=== PATIENT | male | born 1945 | race Caucasian/White ===

== ENCOUNTER 2019-08-06 08:38 | Outpatient (CLI) | payer MEDICARE, SELFPAY ==
--- NOTE | ~2019-08-06 | CT_ITS ---
EXAMINATION: CT lumbar spine wo con DATE: 08/06/2019 09:24 INDICATION: Chronic low back pain syndrome. TECHNIQUE: Computed tomography (CT) of the lumbar spine was performed without intravenous contrast. A utomated exposure control and iterative reconstruction technique were employed. The dose-length produ ct was 308.65 mGy-cm. COMPARISON: None FINDINGS: There is 10 degrees levoscoliosis of lumbar spine. There are chronic bilateral L5 pars defe cts. There is 3 mm anterolisthesis of L5 on S1. Vertebral body heights are normal. There is a benign bone island in L4 vertebral body. There is mildly decreased disc height at L3-L4 and severely decreas ed disc height at L4-L5 and L5-S1. The following disc levels are specifically discussed: L1-L2: The disc is bulging. There is mild bilateral facet joint osteoarthritis. There is mild bilater al neural foraminal stenosis. There is mild central canal stenosis. L2-L3: The disc is bulging. There is mild bilateral facet joint osteoarthritis. There is mild bilater al neural foraminal stenosis. There is mild central canal stenosis. L3-L4: The disc is bulging. There is moderate right and severe left facet joint osteoarthritis. There is moderate right and mild left neural foraminal stenosis. There is mild central canal stenosis. L4-L5: The disc is bulging. There is severe bilateral facet joint osteoarthritis. There is moderate b ilateral neural foraminal stenosis. There is mild central canal stenosis. L5-S1: The disc is bulging. There is mild right and moderate left facet joint osteoarthritis. There i s mild bilateral neural foraminal stenosis. There is mild central canal stenosis. IMPRESSION: 1. Severe lumbar spondylosis. 2. Lumbar levoscoliosis. 3. Chronic bilateral L5 pars defects with grade 1 anterolisthesis of L5 on S1. Reviewed, dictated and finalized at location A.
== END 2019-08-06 08:39 | disposition home or self-care (01) ==
LOC: ANHIMG 08:47
PROVIDERS: PCP Family Medicine; Visit Provider Family Medicine
DX: G89.4 Chronic pain syndrome (principal); M47.896 Other spondylosis, lumbar region
CPT/HCPCS: 72131

== ENCOUNTER 2022-11-20 07:24 | Outpatient (CLI) | payer MEDICARE, SELFPAY ==
--- NOTE | ~2022-11-20 | CT_ITS ---
EXAMINATION: CT soft tissue neck chest wo DATE: 11/20/2022 08:00 INDICATION: Head and neck cancer. TECHNIQUE: Computed tomography (CT) of the neck and chest was performed without intravenous contrast. Automated exposure control and iterative reconstruction technique were employed. The dose-length pro duct was 444.58 mGy-cm. COMPARISON: None FINDINGS: CT NECK: There is a subcutaneous radiopaque foreign body in right cheek. Motion artifact is noted. Th ere are surgical clips in right neck, likely from lymph node resection. The right submandibular gland is absent. There are no pathologically enlarged lymph nodes. The pharynx and larynx are unremarkable . There is severe cervical spondylosis. There is mucosal thickening in right sphenoid sinus with thic kening and sclerosis of the sinus chi, consistent with chronic sinusitis. There is mild mucosal thi ckening in some of the other sinuses. The mastoid air cells are normal. CT CHEST: There is mild emphysema. There is minimal atelectasis in the lungs. Calcified pulmonary nod ules and calcified left hilar lymph nodes are consistent with old granulomatous disease. No pleural e ffusion. The heart size is normal. There are coronary artery calcifications. No pericardial effusion. There is bilateral gynecomastia. There is a small sliding hiatal hernia. There is a 2.2 cm cyst in t he liver. There is a 4.6 cm rim calcified cystic mass in the spleen, likely an old hematoma or old in fection. There are surgical clips around the inferior vena cava. There is mild thoracic spondylosis. IMPRESSION: 1. No evidence of metastatic disease. 2. Mild emphysema. 3. Chronic sinusitis. 4. Small sliding hiatal hernia. Reviewed, dictated and finalized at location B.
== END 2022-11-20 07:25 | disposition home or self-care (01) ==
PROVIDERS: PCP Family Medicine
DX: C02.9 Malignant neoplasm of tongue, unspecified (principal); C76.0 Malignant neoplasm of head, face and neck; K44.9 Diaphragmatic hernia without obstruction or gangrene; J43.9 Emphysema, unspecified; J32.9 Chronic sinusitis, unspecified
CPT/HCPCS: 70490; 71250

== ENCOUNTER 2024-09-12 09:05 | Emergency (ER) | payer MEDICARE, SELFPAY ==
[2024-09-12] VITALS (7 sets, daily range): BP systolic 106–127; BP diastolic 61–70; PULSE 66–81; RESP 15–20; TEMP 36.5–36.6; O2SAT 96–100
--- NOTE | ~2024-09-12 | CT_ITS ---
CLINICAL INDICATION: Altered mental status with right lower quadrant pain and back pain COMPARISON: None. Reference is made to multiple abdominal ultrasounds dating back to 04/03/2012. Refe rence is also made to a CT examination of the chest performed 11/20/2022 TECHNIQUE: Multiple contiguous axial images of the chest, abdomen and pelvis were performed without t he administration of intravenous contrast The dose-length product (DLP) was 415.29 mGy-cm. Automated exposure control and iterative reconstruction technique were employed. FINDINGS/OBSERVATIONS: LUNG: Trace bibasilar atelectasis. No evidence of contusion, pneumothorax or hemothorax. MEDIASTINUM: Limited evaluation without intravenous contrast. HEART: The heart is of normal size, without pericardial effusion. SOFT TISSUES OF THE CHEST: Unremarkable. Liver: Bulky calcifications are identified within the posterior medial margin of segment 6, unchanged dating back to 2011. Irregular focus of decreased attenuation within segment 8 of the liver measuring 2.1 x 2.0 x 1.8 cm, unchanged from 11/20/2022. The remainder of the liver demonstrates homogeneous attenuation, and is not enlarged. No perihepatic fluid to suggest acute traumatic injury. Gallbladder and biliary system: The gallbladder is surgically absent. Pancreas: Limited evaluation of the pancreas secondary to the lack of intravenous contrast. No peripancreatic fluid is identified to suggest acute traumatic injury. Spleen: A calcified splenic cyst is redemonstrated. The spleen remains enlarged measuring 15 cm in longitudin al dimension. No perisplenic fluid is identified to suggest acute traumatic injury. Kidneys: The bilateral [place] kidneys are atrophic, without hydronephrosis or renal calculi. Transplant kidney within the left lower quadrant is without hydronephrosis or renal calculi. No perirenal fluid is identified to suggest acute traumatic injury. Adrenal glands: Unremarkable. Gastrointestinal tract: Fecal stasis within the colon. Colonic diverticulosis without diverticulitis. No free fluid within the abdomen. Trace free fluid within the deep pelvis, simple in attenuation. Vasculature: Unremarkable. Lymph nodes: Limited evaluation without intravenous contrast. Pelvic structures: The bladder is decompressed, and otherwise unremarkable. The prostate gland is not enlarged Body wall and musculoskeletal: No umbilical hernia. Degenerative disease is identified within the lower lumbar spine with osteophyte formation, disc spac e narrowing, endplate changes and vacuum phenomena. This is most prominent at the level of L4/L5 and L5/S1. Moderate facet arthropathy is also noted as i s a bone island within the vertebral body of L4. No acute fracture within the thoracic or lumbar spine. No acute rib fractures. No acute sternal fracture. IMPRESSION: No hollow or solid visceral organ injury. No acute fractures. Innumerable nonacute findings, as detailed above. Reviewed, dictated and finalized at location A.
--- NOTE | ~2024-09-12 | CT_ITS ---
History: Altered mental status PROCEDURE: CT head without contrast. COMPARISON: None TECHNIQUE: Axial imaging of the head performed from the skull base to the vertex without IV contrast. Sagittal a nd coronal reformations obtained. DLP: 605 mGy-cm FINDINGS: The ventricles are enlarged. The dilatation of the ventricles is proportional to the degree of sulcal prominence, not uncommon in the senescent brain. Decreased attenuation is identified within the periventricular white matter, likely secondary to micr ovascular ischemic disease, in a patient of this age. There is no mass, mass effect or midline shift. There is no abnormal extra-axial fluid collection or intracranial hemorrhage. Opacification of the right sphenoid sinus is identified. Remaining paranasal sinuses are unremarkable. The mastoid air cells are well aerated. No acute displaced fractures within the overlying cranium. Impression: No acute intracranial hemorrhage or suspicious mass effect. Inflammatory sinus disease, as detailed above. Reviewed, dictated and finalized at location A. Impression: No acute intracranial hemorrhage or suspicious mass effect. Inflammatory sinus disease, as detailed above.
--- NOTE | 2024-09-12 09:13 | ECG_ITS ---
Test Date: 2024-09-12 09:17:00 Measurements Intervals [place] Rate: 76 P: -3 WA: 163 QRS: 12 QRSD: 89 T: 34 QT: 389 QTc: 438 Interpretive Statements SINUS RHYTHM No previous ECG available for comparison Electronically Signed On 09-12-2024 11:46:15 CDT by Fernando Dixon M.D.
--- OUTSIDE RECORDS SUMMARY | 2024-09-12 09:14 | XMS_ITS ---
Author Organization [facility] al Address [address] [place] [address] Care Team Providers Care Journeyman Electrician Pv Installer Name Role Phone Celia Mayberry MD Primary Care Provider Dale Figueroa RN Unavailable Jarrod Ramirez MD Unavailable [phone] Leena Alfaro RN Unavailable José Manuel Antoine MD Unavailable [phone] Isreal Morgan MD Unavailable [phone] Temo Shepard MD Unavailable Active Problems Patient Care Coordination No te Formatting of this note migh t be different from the original. Lab Name: [facility] Phone: Timeframe orders are good for: 6 Months Last orders sent to lab on: 2024 (Standing Order (Liver): CBC, CMP, GGT, [place], Every 12 Weeks) STANDING ORDERS (Kidney): Q3 - PHOS, GGT, CMP, FK HGBA1C, LP (expires: 10/27/24) Problem Noted Date Diagnosed Date Chronic back pain 09/18/2022 Assessment & Plan (09/18/2022 5:44 PM CDT): He asked about pain pills. I told him I would prefer if he saw someone in pain management. He has done this before and did not feel that another visit was of benefit. He will continue to use his current regimen. Cirrhosis, non-alcoholic 09/18/2022 Assessment & Plan (09/18/2022 5:44 PM CDT): Secondary to chronic hepatitis-C following the transplant; hepatitis-C subsequently eradicated with antiviral therapy. Imaging of the liver to screen for hepatocellular carcinoma has been recommended. He is not interested and accepts the potential risk of the development of hepatocellular carcinoma. 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 Kidney replaced by transplant 07/01/2018 Chronic fatigue 07/01/2018 Increased infection risk sta tus post immunosuppressive therapy 10/09/2017 Assessment & Plan (10/09/2017 11:03 AM CDT): Completed 3 month course valcyte for CMV prophylaxis Completed fluconazole course Bactrim on hold for hyperkalemia #3 Hep B immunization: Will wait until next OV Rhinorrhea 10/09/2017 Assessment & Plan (10/09/2017 11:18 AM CDT): Fluticasone nasal spray- 1 spray each nostril QD Encounter for preventive health examination 10/2017 High risk medications (not anticoagulants) long- term use 09/02/2017 Assessment & Plan (10/09/2017 1:20 PM CDT): Tacrolimus increased from 3 mg to 4 mg on 10/02. Tac level was 4.4 on 3 mg and now last tac level 10.3. D/W patient consistently taking tacrolimus 1 hour from consuming food; Will continue 4 mg at this time and reassess repeat trough prior to making another adjustment Continue same dose and continue to monitor levels Continue antimetabolite and prednisone Anemia of chronic disease 09/01/2017 Renal osteodystrophy 05/27/2017 History of liver transplant 02/06/2017 Assessment & Plan (09/18/2022 5:43 PM CDT): He has stable allograft function. I saw no reason to change his current immunosuppression. He is not interested in frequent lab checks but is agreeable to labs every 6 months. I will continue to monitor levels of immunosuppressive medications. He will return in 1 year or when clinically indicated. Telehealth is acceptable. Assessment & Plan (05/10/2020 5:58 PM CULTURE ROOM WORKER): He has stable allograft function with normal liver biochemistries. I am not convinced she the liver is responsible for his multi system complaints. There was some question of cirrhosis on previous studies, secondary to the chronic hepatitis-C. However, definitive cirrhosis is not seen now, possibly due to regression of hepatic fibrosis. I saw no reason to change his current immunosuppression. I suspect there are multiple components to his complaints. He spends much of the day with very little activity. I suggested regular daily walks of 20-30 minutes to slowly increase his strength. I suggested CPAP for his obstructive sleep apnea. He refused. I suspect there is a component of depression, but he is not interested in antidepressants. I offered Remeron with the thought that it might improve his appetite. Again, he refused. He will return in 1-2 years for follow-up. 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 His posttransplant course significant for recurrent hepatitis C for which he has had at least 4 rounds of treatment and he has not been able to clear his hepatitis C. He follows with Dr. Ramirez in Hepatology at [facility]. Currently, not on any treatment at the time of kidney transplantation. End-stage renal disease secondary to biopsy proven diabetes with a history of end-stage liver disease, hepatocellular carcinoma, and hepatitis C secondary to liver transplantation on December 2014 as above. He underwent the high-risk HCV DCD donor, and donor positive for group B strep. Kidney transplantation in 08/18/2017. It was 1, 2, 1 mismatch, flow negative for T cell and B cell, PRA class I 0%, class II 0%, no DSA. CMV positive into positive. He received Simulect induction 20 mg in the OR and postop day 4. He was discharged with triple immunosuppression, Envarsus, Myfortic, and prednisone. His creatinine on discharge was 2.1 on 08/22/2017. Assessment & Plan (10/09/2017 1:20 PM CDT): Creatinine stable, last was 1.43; Urine negative today Continue to monitor creatinine and renal function; Avoid nephrotoxins Chronic rhinitis 12/05/2014 Alcohol dependence in remission 11/24/2013 Assessment & Plan (09/18/2022 5:45 PM CDT): No known change in alcohol abstinence. Chronic obstructive pulmonary disease 11/22/2012 Dysthymia 11/22/2012 Assessment & Plan (09/18/2022 5:45 PM CDT): Multiple factors; continue to monitor. Hypersplenism 11/22/2012 Hypertension 11/22/2012 Assessment & Plan (10/09/2017 1:21 PM CDT): Hypertension is unchanged. Continue current treatment regimen. Dietary sodium restriction. Regular aerobic exercise. Blood pressure will be reassessed at the next regular appointment. Type 2 diabetes mellitus 11/22/2012 Assessment & Plan (10/09/2017 1:22 PM CDT): Diabetes is unchanged. Continue current treatment regimen. Reminded to bring in blood sugar diary at next visit. Dietary recommendations for ADA diet. Regular aerobic exercise. Discussed ways to avoid symptomatic hypoglycemia. Diabetes will be reassessed in 3 months. Thrombocytopenia 11/17/2011 Hyperlipidemia Current Treatment and Therapy Plans No current plan information found. Other Current Plans DARBEPOETIN (ARANESP) INJECTION-?CHRONIC RENAL FAILURE* Plan Start Date: 09/01/2017 Plan Provider:Transcribed Order, Provider Linked Problems Anemia of chronic disease Treatment Medications No medications scheduled. Past Treatment and Therapy Plans No past plan information found. Lifetime Dose Tracking * Chemical Lifetime Dose Automatic Entry Manual Entr y DLP 763 mGycm 763 mGycm 0 mGycm Resolved Problems Problem Noted Date Diagnosed Date Resolved Date Stage 5 chronic kidney disease (CMS/HCC) 10/21/2016 09/18/2022 Stage 4 chronic kidney disease (CMS/HCC) 03/19/2016 09/18/2022 Chronic viral hepatitis C 06/03/2011
--- OUTSIDE RECORDS SUMMARY | 2024-09-12 09:14 | XMS_ITS ---
Author Organization [facility] ([facility]) Address [address] [place] [id number] Care Team Providers Care Analysis Engineer Name Role Phone Unavailable Unavailable Unavailable Allergies, Adverse Reactions, Alerts This patient has no known allergies or adverse reactions. Problems This patient has no known problems.
--- OUTSIDE RECORDS SUMMARY | 2024-09-12 09:14 | XMS_ITS ---
Author Organization [facility] al Address [address] [place] [address] Care Team Providers Care Cylinder Press Operator Name Role Phone Celia Mayberry MD Primary Care Provider Dale Figueroa RN Unavailable Jarrod Ramirez MD Unavailable [phone] Leena Alfaro RN Unavailable [phone] José Manuel Antoine MD Unavailable [phone] Isreal Morgan MD Unavailable [phone] Temo Shepard MD Unavailable [phone] Transplant Episode Kidney Recipient [facility] ([place], [place]) [facility] Organ Received: Right Kidney Transplanted on 08/18/2017 Marked as Active Follow-up on 08/18/2017 Kidney CoordinatorDale Figueroa RN Fax: N/A Email: N/A [place] Organ Diagnosis Organ Primary Contributory Kidney Diabetes Mellitus - Type II Retransplant Diagnosis Organ Primary Contributory Kidney Diabetes Mellitus - Type II Donor Information Organ ABO Source Meets Risk Criteria HLA Match Mismatches Cross Match Right Kidney Transplanted A1 DCD Yes A: B: DR: Right Kidney Donor Serology Results Anti-CMV CMV IgG: Positive EBV IgG EBV VCA IgG: Positive Anti-HBcAb HBC Total: Negative HBsAg HBsAg: Negative HBV DNA No results on file Anti-HCV HCV: Positive Anti-HIV I/II No results on file Anti-HTLV I/II HTLV: Not Done RPR/VDRL RPR: Negative EBV IgM EBV VCA IgM: Negative HBsAb No results on file EBNA No results on file SARS CoV-2 No results on file Care Team Name Role Phone Fax Email Dale Figueroa, RN Kidney Coordinator [phone] N/A N/A Yina Huitron Primary Senior Software Qa Engineer N/A N/A N/A Dale Figueroa, warehouse pullerLab Asst [phone] N/A N/A Neelam Blair, ROSHNI Secondary Coordinator Secondary Kidney Coordinator [phone] N/A N/A Delma Chaudhry Entry Level Marketing Assistant [phone] N/A N/A Marci Maldonado Entry Level Marketing Assistant [phone] N/A N/A Events Post-Transplant Pre-Transplant Admitted: 08/18/2017 Referred: 10/10/2016 Transplanted: 08/18/2017 Evaluation began: 7 Discharged: 08/22/2017 Center waitlisted: 8 Appointments (08/13/2024 - 10/13/2024) When With Visit Type Description 09/03/2024 Transplant - [facility] Telemedicine Appoin tment Kidney replaced by transplant (Primary Dx); Encounter for aftercare following kidney transplant; Encounter for long-term (current) use of high-risk medication; Hypertension, unspecified type Dialysis History Dialysis History Start End Type Comments Center 09/16/2017 [facility] Dialysis Center Information Center Phone Fax Address [facility] [phone] [address] [facility] [id number]
--- OUTSIDE RECORDS SUMMARY | 2024-09-12 09:14 | XMS_ITS | Referral Summary ---
Author Organization [facility] Address [address] [place] [address] Care Team Providers Care Java Web Services Developer Name Role Phone Celia Mayberry MD Primary Care Provider Dale Figueroa RN Unavailable Jarrod Ramirez MD Unavailable [phone] Leena Alfaro RN Unavailable José Manuel Antoine MD Unavailable [phone] Isreal Morgan MD Unavailable [phone] Temo Shepard MD Unavailable [phone] Encounters Date Type Department Care Team Description 09/10/2024 8:33 AM CDT - 09/10/2024 11:24 AM CDT Emergency [facility] Emergency Department [address] [place] [address] Shakir Sumner MD Acute bilateral thoracic back pain (Primary Dx) Discharge Disposition: Discharge to home or self care 09/03/2024 9:00 AM CDT Telemedicine [facility] Nephrology [address] [facility] 5th [place] [address] [place] [address] Senait Cloud NP Kidney replaced by transplant (Primary Dx); Encounter for aftercare following kidney transplant; Encounter for long-term (current) use of high-risk medication; Hypertension, unspecified type 08/31/2024 Lab [facility] Transplant Kidney [address] Mailstop [phone] [place] [address] Tamara Ashraf MD 08/27/2024 Lab [facility] Transplant Kidney [address] [facility] [address] Mailstop [phone] [place] [address] Tamara Ashraf MD 08/27/2024 Telephone [facility] Transplant Kidney [address] [facility] [address] Mailstop [id number] [place] [address] Alexia Urias from Last 3 Months Allergies Active Allergy Reactions Criticality Noted Date Comments No Known Allergies Other (See comments) Low Reaction: Medications levothyroxine (SYNTHROID, LEVOTHROID) 88 mcg tabletIndicatio ns:hypothyroidi sm Take 1 tablet (88 mcg total) by mouth quality review trainer before breakfast 8 Active BD ULTRA-FINE SHORT PEN NEEDLE 31 gauge x 5/16 needle 8 Active temazepam (RESTORIL) 30 mg capsuleIndicati ons:Insomnia Take 1 capsule (30 mg total) by mouth nightly as needed 3 8 Active cholecalciferol (VITAMIN D-3) 2,000 unit tabletIndicatio ns:Vitamin D Deficiency Take 1 tablet (2,000 Units total) by mouth nightly 8 Active ONETOUCH ULTRA BLUE TEST STRIP strip USE TO TEST TID 3 8 Active carvediloL (COREG) 3.125 mg tabletIndicatio ns:hypertension Take 1 tablet (3.125 mg total) by mouth nightly 0 Active aspirin 81 mg enteric coated tabletIndicatio ns:prevention of thrombosis Take 1 tablet (81 mg total) by mouth nightly 2 Active oxyCODONE (ROXICODONE) 5 mg immediate release tabletIndicatio ns:Pain Take 1 tablet (5 mg total) by mouth every 4 (four) hours as needed for pain for up to 30 doses 30 tablet 2 Active predniSONE (DELTASONE) 2.5 mg tabletIndicatio ns:Kidney replaced by transplant Take 1 tablet (2.5 mg) by mouth daily 90 tablet 3 5 08/28/19 26 Active tacrolimus 1 mg immediate-relea se capsuleIndicati ons:History of liver transplant (HCC) Take 2 capsules (2 mg total) by mouth every morning AND 1 capsule (1 mg total) nightly. Dx code: z94.0 Specialty pharmacy. 270 capsule 3 5 08/28/19 26 Active cyclobenzaprine (FLEXERIL) 10 mg tablet Take 1 tablet (10 mg total) by mouth 2 (two) times a day as needed for muscle spasms 20 tablet 5 Active lidocaine (LIDODERM) 5 % Apply 1 patch topically daily for 12 hours Remove after 12 hours (need 12 hour patch free period). 10 patch 5 10/11/19 25 Active tacrolimus 1 mg immediate-relea se capsuleIndicati ons:History of liver transplant (HCC) Take 2 capsules (2 mg total) by mouth every morning AND 1 capsule (1 mg total) nightly. Dx code: z94.0 Specialty pharmacy. 270 capsule 3 4 08/28/19 25 Discontinu ed(Reorder ) predniSONE (DELTASONE) 2.5 mg tabletIndicatio ns:Kidney replaced by transplant Take 1 tablet (2.5 mg) by mouth daily 90 tablet 3 4 08/28/19 25 Discontinu ed(Reorder ) Active Problems Patient Care Coordination No te Formatting of this note migh t be different from the original. Lab Name: [facility] Phone: Timeframe orders are good [...] (11/06/2021): Added automatically from request for surgery [id number] Encounter for long-term (cur rent) use of [...] acceptable. 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 Ramirez in Hepatology at [facility]. Currently, not on any treatment at the [...] reassessed in 3 months. Thrombocytopenia 11/17/2011 Hyperlipidemia Resolved Problems Problem Noted Date Diagnosed Date Resolved Date Stage 5 chronic kidney disease ([facility]/HCC) 10/21/2016 09/18/2022 Stage 4 chronic kidney disease ([facility]/HCC) 03/19/2016 09/18/2022 Chronic viral hepatitis C 06/03/2011 Immunizations Immunization Administration Dates Next Due Hep B Vaccine 02/25/2018, 8,03/24/2017,02/19 Influenza, Quad, Adjuvantate d, Intramuscular 12/23/2020 Influenza, Quadrivalent, Hig h Dose, Preservative Free, Intrr 02/01/2020 Influenza, Trivalent, Adjuva nted, Intramuscular 02/10/2019 Influenza, Trivalent, High D ose, Split, Preservative Free, Intramuscular 01/24/2018,01/22/2017,01/08/2017,01/18 Influenza, Trivalent, IM (MDV) 01/14/2013 Pfizer SARS-CoV-2 Monovalent Vaccination (12+ Yrs) PURPLE 05/27/2020,06/23/2019 Pneumococcal Polysaccharide PPV23 02/20/2017 ZOSTER LIVE 11/14/2015 Social History Tobacco Use Types Packs/Day Years Used Date Smoking Tobacco: Every Day Cigarettes Smokeless Tobacco: Never Tobacco Cessation:Ready to Q uit: Not Asked; Counseling Given: Not Answered Comments:plans to quit smoking after sx Alcohol Use Standard Drinks/Week Comments Not Currently 0 (1 standard drink = 0.6 oz pur e alcohol) AUDIT-C Answer Date Recorded Frequency of Alcohol Consumption Not on file 12/11/2021 Q2: How many drinks containi ng alcohol do you have on a typical day when you are drinking? Patient does not drink Frequency of Binge Drinking Not on file 11/20 Personal Safety Answer Date Recorded Have you ever been in or are you currently in a harmful physical or emotional relationship or is someone making you feel afraid or unsafe? 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 Gender Identity Not on file Sexual Orientation Not on file Last Filed Vital Signs Vital Sign Reading Time Taken Comments Blood Pressure 121/76 09/10/2024 8:30 AM CDT Pulse 76 09/10/2024 8:30 AM CDT Temperature 36.8 C (98.3 F) 09/10/2024 8:30 AM CDT Respiratory Rate 17 09/10/2024 8:30 AM CDT Oxygen Saturation 98% 09/10/2024 8:30 AM CDT Inhaled Oxygen Concentration - - Weight 54.4 kg (120 lb) 09/10/2024 8:30 AM CDT Height 172.7 cm (5' 8 ) 09/10/2024 8:30 AM CDT Body Mass Index 18.25 09/10/2024 8:30 AM CDT Plan of Treatment Scheduled Procedures Name Priority Associated Diagnoses Date/Ti me COLONOSCOPY Encounter for health-related screening Procedures Procedure Name Priority Date/Time Associated Diagnosis Comments POCT GLUCOSE DEVICE Routine 09/10/2024 8 :31 AM CDT TACROLIMUS LEVEL, TROUGH Routine 08/27/2024 CBC WITH AUTO DIFFERENTIAL Routine 08/27/2024 LIPID PANEL Routine 08/27/2024 COMPREHENSIVE METABOLIC PANEL Routine 08/27/2024 GAMMA GT Routine 08/27/2024 HEMOGLOBIN A1C Routine 08/27/2024 PHOSPHORUS Routine 08/27/2024 TSH Routine 10/19/2020 HEPATITIS C RNA, QUANTITATIVE, PCR Routine 02/19/2019 CT ABDOMEN PELVIS WO CONTRAST Routine 01/27/2017 6:24 PM CDT COLONOSCOPY REPORT 11/16/2014 from Last 3 Months or Most Recently Relevant to Health Maintenance Results * (ABNORMAL) POCT glucose (09/10/2024 8:31 AM CDT) Glucose, POC 301(H) 70 - 199 mg/dL Blood 09/10/2024 8:31 AM CDT 09/10/2024 8:31 AM CDT Notinfile Unknown LAB POCT ORDERABLES - DEVICE F inal Result Performing Organization Address [facility] Co de Phone Number REYNALDO MERGED WITH [facility] Department [place] [address] * Tacrolimus level trough (08/27/2024) SCRIBED Tacrolimus, trough 11 5 - 20 TXP NO LAB FOUND Blood 08/27/2024 Result [facility] Historical Provider LAB BLOOD ORDERABLES Edit ed Result - Final Performing Organization Address [facility] de Phone Number TXP NO LAB FOUND * (ABNORMAL) CBC with auto differential (08/27/2024) SCRIBED WBC 5.8 4.2 - 10.8 k/cumm TXP NO LAB FOUND SCRIBED Hemoglobin 14.2 13.2 - 17 g/dL TXP NO LAB FOUND SCRIBED Hematocrit 43.9 39.3 - 50 % TXP NO LAB FOUND SCRIBED Platelets 116(A) 150 - 400 k/cumm TXP NO LAB FOUND Blood 08/27/2024 Historical Provider LAB BLOOD ORDERABLES Edit ed Result - Final Performing Organization Address [facility] Co de Phone Number TXP NO LAB FOUND * Phosphorus (08/27/2024) SCRIBED Phosphorus 3.2 2.5 - 4.5 mg/dl TXP NO LAB FOUND Blood 08/27/2024 Result [facility] Historical Provider LAB BLOOD ORDERABLES Terra l Result Performing Organization Address [facility] Co de Phone Number TXP NO LAB FOUND * (ABNORMAL) Hemoglobin A1c (08/27/2024) SCRIBED Hemoglobin A1c 6.5(A) 4.0 - 6.0 % TXP NO LAB FOUND Blood 08/27/2024 Result [facility] Provider LAB BLOOD ORDERABLES Terra l Result Performing Organization Address City/[facility]/ZIP Co de Phone Number TXP NO LAB FOUND * Gamma GT (08/27/2024) SCRIBED GGT 16 12 - 58 TXP NO L AB FOUND Blood 08/27/2024 Result [facility] Provider LAB BLOOD ORDERABLES Terra l Result Performing Organization Address [facility] Co de Phone Number TXP NO LAB FOUND * (ABNORMAL) Lipid panel (08/27/2024) SCRIBED Cholesterol, Total 266(A) 140 - 199 mg/dL TXP NO LAB FOUND SCRIBED Triglycerides 286(A) 0 - 150 mg/dL TXP NO LAB FOUND SCRIBED HDL 62 >=40 mg/dL TXP NO LAB FOUND SCRIBED LDL 147(A) 0 - 130 mg/dL TXP NO LAB FOUND Scribed Non-HDL Cholesterol 0 NONE mg/dL TXP NO LAB FOUND SCRIBED Total Cholesterol/HDL Ratio 0 NONE TXP NO LAB FOUND Blood 08/27/2024 Result [facility] Provider LAB BLOOD ORDERABLES Terra l Result Performing Organization Address [facility] Co de Phone Number TXP NO LAB FOUND * (ABNORMAL) Comprehensive metabolic panel (08/27/2024) SCRIBED Sodium 140 137 - 145 mmol/L TXP NO LAB FOUND SCRIBED Potassium 5.1 3.5 - 5.1 mmol/L TXP NO LAB FOUND SCRIBED Chloride 103 98 - 107 mmol/L TXP NO LAB FOUND SCRIBED Carbon Dioxide 27 22 - 30 mmol/L TXP NO LAB FOUND SCRIBED Urea Nitrogen (BUN) 40(A) 8 - 19 mg/dl TXP NO LAB FOUND SCRIBED Creatinine 1.5(A) 0.66 - 1.25 mg/dl TXP NO LAB FOUND SCRIBED Glucose 156(A) 70 - 99 mg/dl TXP NO LAB FOUND SCRIBED Calcium 9.5 8.4 - 10.2 mg/dl TXP NO LAB FOUND SCRIBED Bilirubin 0.7 0.2 - 1.3 mg/dl TXP NO LAB FOUND SCRIBED Plasma Protein 7.1 6.3 - 8.2 g/dl TXP NO LAB FOUND SCRIBED Albumin 4.7(A) 3 - 4.4 g/dl TXP NO LAB FOUND SCRIBED Alkaline Phosphatase 94 38 - 126 Units/L TXP NO LAB FOUND SCRIBED Alanine Transaminase (ALT) 14 0 - 50 Units/L TXP NO LAB FOUND SCRIBED Aspartate Transaminase (AST) 26 15 - 46 Units/L TXP NO LAB FOUND SCRIBED eGFR in NonAfrican Libyan 45 >60 TXP NO LAB FOUND Blood 08/27/2024 Result [facility] Historical Provider LAB BLOOD ORDERABLES Terra l Result Performing Organization Address [facility] Co de Phone Number TXP NO LAB FOUND * TSH (10/19/2020) Scribed TSH 0.58 0.47 - 4.68 mcU/mL TXP NO LAB FOUND Blood specimen (specimen) 10/19/2020 Result [facility] Historical Provider LAB BLOOD ORDERABLES Terra l Result Performing Organization Address [facility] Co de Phone Number TXP NO LAB FOUND * Hepatitis C (HCV) RNA PCR, quantitative (02/19/2019) SCRIBED HCV RNA Nt. Det. 0 - <1.18 IUnit/mL TXP NO LAB FOUND Blood specimen (specimen) 02/19/2019 Result [facility] Historical Provider LAB MICROBIOLOGY - GENERA L ORDERABLES Final Result Performing Organization Address [facility] Co de Phone Number TXP NO LAB FOUND * CT Abdomen Pelvis WO Contrast (01/27/2017 6:24 PM CDT) Anatomical Region Laterality Modality Body N/A Computed Tomogra phy 01/27/2017 6:24 PM CDT Narrative 01/27/2017 6:24 PM CDT VINICIO ORTIZ M.D. ERIK CELAYA M.D. FINAL REPORT The radiology attending physician has personally reviewed this study, and has reviewed and/or edited this written report and agrees with it. ACC# Date Time Exam [id number] Jan 27, 2017 13:24:[id number] Abd and Pelvis wo cont EXAMINATION: Computed tomography of the abdomen and pelvis without intravenous contrast HISTORY: Prerenal transplant evaluation TECHNIQUE: Transaxial computed tomographic images of the abdomen and pelvis were obtained without intravenous contrast according to the standard protocol. COMPARISON: 09/10/2014 FINDINGS: There are multiple new ill-defined pulmonary nodules as well as tree-in-bud opacities in the lower lobes likely due to aspiration. There is new streaky opacity in the lateral segment right middle lobe new since 2014 possibly scarring as a result of prior infection. The heart is normal in size with trace pericardial fluid. Postsurgical changes of orthotopic liver transplantation are noted. Gallbladder is absent. The adrenals and kidneys are normal. There is an unchanged peripherally calcified cystic lesion in the superior portion of the spleen, unchanged. The pancreas is normal. There is colonic diverticulosis without evidence of diverticulitis. There is a small amount of free fluid in the pelvis. No free air. There is no lymphadenopathy in the abdomen or pelvis by size criteria. The urinary bladder is normal. A penile prosthesis 7 address her lamas in the anterior pelvis is an noted. There is moderate calcified atherosclerotic disease of the aorta and bilateral iliac vessels, left worse than right. There is a mild fusiform ectasia of the infrarenal abdominal aorta measuring 2.4 cm. There is no suspicious osseus lesion. IMPRESSION: 1. Moderate atherosclerotic calcifications of the aorta and bilateral iliac vessels, left slightly worse than right. 2. Ill-defined pulmonary nodules and tree-in-bud opacities in the lower lobes likely sequela of aspiration. Electronically signed by: Vinicio Barroso M.D. Requested By: Tamara Ashraf M.D. Dictated By: ERIK CELAYA M.D. on Jan 27 2017 1:45P This document has been electronically signed by: VINICIO ORTIZ M.D. on Jan 27 2017 1:45P [id number] CONNORS M.D. FINAL REPORT The radiology attending physician has personally reviewed this study, and has reviewed and/or edited this written report and agrees with it. Attending: CADEN MARTINEZ Requesting: Tamara Ashraf Requesting Fax: Attending Fax: Attending ID: [id number] Requesting ID: [id number] Report To 1 ID: [id number] Report To 1 Name: , Report To 1 FAX: NextGen Order #: Procedure Note Miscellaneous, Not In File / Provider, MD Sofia - 01/28/2017 Jose CONNORS M.D. FINAL REPORT The radiology attending physician has personally reviewed this study, and has reviewed and/or edited this written report and agrees with it. [facility]# Date Time Exam [id number] Jan 27, 2017 13:24:[id number] Abd and Pelvis wo cont EXAMINATION: Computed tomography of the abdomen and pelvis without intravenous contrast HISTORY: Prerenal transplant evaluation TECHNIQUE: Transaxial computed tomographic images of the abdomen and pelvis were obtained without intravenous contrast according to the standard protocol. COMPARISON: 09/10/2014 FINDINGS: There are multiple new ill-defined pulmonary nodules as well as tree-in-bud opacities in the lower lobes likely due to aspiration. There is new streaky opacity in the lateral segment right middle lobe new since 2014 possibly scarring as a result of prior infection. The heart is normal in size with trace pericardial fluid. Postsurgical changes of orthotopic liver transplantation are noted. Gallbladder is absent. The adrenals and kidneys are normal. There is an unchanged peripherally calcified cystic lesion in the superior portion of the spleen, unchanged. The pancreas is normal. There is colonic diverticulosis without evidence of diverticulitis. There is a small amount of free fluid in the pelvis. No free air. There is no lymphadenopathy in the abdomen or pelvis by size criteria. The urinary bladder is normal. A penile prosthesis 7 address her lamas in the anterior pelvis is an noted. There is moderate calcified atherosclerotic disease of the aorta and bilateral iliac vessels, left worse than right. There is a mild fusiform ectasia of the infrarenal abdominal aorta measuring 2.4 cm. There is no suspicious osseus lesion. IMPRESSION: 1. Moderate atherosclerotic calcifications of the aortaand bilateral iliac vessels, left slightly worse than right. 2. Ill-defined pulmonary nodules and tree-in-bud opacities in the lower lobes likely sequela of aspiration. Electronically signed by: Vinicio Barroso M.D. Requested By: Tamara Ashraf M.D. Dictated By: ERIK CELAYA M.D. on Jan 27 2017 1:45P This document has been electronically signed by: VINICIO ORTIZ M.D. on Jan 27 2017 1:45P [id number] CONNORS M.D. FINAL REPORT The radiology attending physician has personally reviewed this study, and has reviewed and/or edited this written report and agrees with it. Attending: CADEN MARTINEZ Requesting: Tamara Ashraf Requesting Fax: Attending Fax: Attending ID: [id number] Requesting ID: [id number] Report To 1 ID: [id number] Report To 1 Name: , Report To 1 FAX: NextGen Order #: Tamara Ashraf MD IMG CT PROCEDURES Edited Result - Final * COLONOSCOPY REPORT (11/16/2014) Anatomical Region Laterality Modality Other Narrative 11/16/2014 Ordered by an unspecified provider. Historical Provider GI PROCEDURE ORDERABLES F inal Result from Last 3 Months or Most Recently Relevant to Health Maintenance Insurance MEDICARE [employer] MEDIC[place] [address] [employer] CLAIMS OFFICE [place]IC[place] [address] Advance Directives For more information, please contact: [phone] Documents on File Type Date Recorded Patient Commissary Helper Expl anation ADVANCE DIRECTIVE 11/14/2021 7:21 AM Power of Docket Clerk-Medical ADVANCE DIRECTIVE 08/26/2017 12:00 AM * Full Code (Latest Code Status on File) Date Activated Date Inactivated Comments 12/11/2021 1:33 PM 12/13/2021 3:52 PM * Full Code Date Activated Date Inactivated Comments 04/07/2019 8:21 AM 04/07/2019 1:49 PM Care Teams Java Web Services Developer Relationship Specialty Start Date End Date Celia Mayberry MD [address] [place] [address] PCP - General 08/06/16 Dale Figueroa, RN [address] [facility] [address] [place] [address] Registered Nurse Community Marketing Manager 11/19/17 Jarrod Ramirez MD [address] [facility] [address] [place] [address] Referring Physician Transplant Hepatology 01/01/18 Leena Alfaro RN Community Marketing Manager Transplant 05/07/19 José Manuel Antoine MD [address] [facility] [address] [place] [address] Medical Oncologist/Hematologis t Medical Oncology 11/06/21 Isreal Morgan MD [address] [facility] [address] [place] [address] Consulting Physician Otolaryngology 11/06/21 Temo Shepard MD [address] [facility] [address] [place] [address] Radiation Oncologist Radiation Oncology 11/06/21
--- OUTSIDE RECORDS SUMMARY | 2024-09-12 09:14 | XMS_ITS ---
Author Organization [facility] Address [address] [place] [address] Care Team Providers Care Creative Services Producer Name Role Phone Celia Mayberry MD Primary Care Provider Dale Figueroa RN Unavailable Jarrod Ramirez MD Unavailable [phone] Leena Alfaro RN Unavailable [phone] José Manuel Antoine MD Unavailable [phone] Isreal Morgan MD Unavailable [phone] Temo Shepard MD Unavailable [phone] Transplant Episode Liver Recipient [facility] ([place], [place]) - [facility] Organ Received: Liver Transplanted on 01/04/2015 Marked as Active Follow-up on 01/04/2015 Liver CoordinatorLeena Alfaro RN Fax: N/A Email: N/A [place] Organ Diagnosis Organ Primary Contributory Liver Primary Liver Malignancy: Hepato ma (HCC) and Cirrhosis Retransplant Diagnosis Organ Primary Contributory Liver Primary Liver Malignancy: Hepato ma (HCC) and Cirrhosis Donor Information Organ ABO Source Meets Risk Criteria HLA Match Mismatches Cross Match Liver Transplanted A2 DBD No A: B: DR: Liver Donor Serology Results Anti-CMV CMV IgG: Positive EBV IgG EBV VCA IgG: Positive Anti-HBcAb HBC Total: Negative HBsAg HBsAg: Negative HBV DNA No results on file Anti-HCV HCV: Negative Anti-HIV I/II No results on file Anti-HTLV I/II HTLV: Not Done RPR/VDRL RPR: Negative EBV IgM EBV VCA IgM: Negative HBsAb No results on file EBNA No results on file Toxoplasma No results on file SARS CoV-2 No results on file Care Team Name Role Phone Fax Email Leena Alfaro, ROSHNI Liver Coordinator [phone] N/A N/A Odessa Walters RN Secondary Coordinator Secondary Liver Coordinator [phone] N/A N/A Leena Alfaro, platform material handler managerGlass Embosser [phone] N/A N/A Delma Chaudhry Electrical Controls Technician [phone] N/A N/A Marci Maldonado Electrical Controls Technician [phone] N/A N/A Lucy Carreno Primary Fashion Buying Internship N/A N/A N/A Meaghan Carrera platform material handler managerGlass Embosser [phone] N/A N/A Events Post-Transplant Pre-Transplant Admitted: 01/04/2015 Referred: 04/06/2013 Transplanted: 01/04/2015 Evaluation began: 3 Discharged: 01/13/2015 Center waitlisted: 5 Dialysis History Dialysis History Start End Type Comments Center 09/16/2017 Brenna [facility] Dialysis Center Information Center Phone Fax Address [facility] [phone] [address] [facility] [address]
--- OUTSIDE RECORDS SUMMARY | 2024-09-12 09:14 | XMS_ITS | Encounter Summary ---
Author Organization [facility] Healthcare Address [address] [place] [address] Care Team Providers Care Senior Linux Unix Engineer Name Role Phone Celia Mayberry MD Primary Care Provider Samantha Alberto RN Unavailable [phone] Dale Figueroa RN Unavailable Jarrod Ramirez MD Unavailable [phone] Leena Alfaro RN Unavailable [phone] José Manuel Antoine MD Unavailable [phone] Isreal Morgan MD Unavailable [phone] Temo Shepard MD Unavailable Encounter Details Date Type Department Care Team (Late st Contact Info) Description 01/27/2019 Orders Only [facility] Health Information Management [address] [place] [address] Scanning, Provider Social History Tobacco Use Types Packs/Day Years Used Date Smoking Tobacco: Former Cigarettes Q uit: 2010 Smokeless Tobacco: Never Alcohol Use Standard Drinks/Week Comments Not Currently 0 (1 standard drink = 0.6 oz pur e alcohol) Sex and Gender Information Value Date Recorded Sex Assigned at Not on file 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 Gender Identity Not on file Sexual Orientation Not on file documented as of this encounter Plan of Treatment Scheduled Procedures Name Priority Associated Diagnoses Date/Ti me COLONOSCOPY Encounter for health-related screening documented as of this encounter Procedures Procedure Name Priority Date/Time Associated Diagnosis Comments SCAN - LABS 01/27/2019 5:34 PM CDT documented in this encounter Results * SCAN - LABS (01/27/2019 5:34 PM CDT) Provider Scanning Final Result documented in this encounter Visit Diagnoses Not on filedocumented in this encounter Additional Health Concerns Infection Onset Date Last Indicated Resolved Time C. difficile Comment:12/11/2021 IP Review: per current RN, no active diarrhea, old flag, OK to come off of C.dif precautions. Kacie Washburn RN generated from 7 09/08/2014 09/08/2014 12/11/2021 4:26 PM C DT documented as of this encounter Care Teams Senior Linux Unix Engineer Relationship Specialty Start Date End Date Celia Mayberry MD [address] [place] [address] PCP - General 08/06/16 Samantha Alberto RN [address] [facility] [address] [place] [address] Tinsmith Apprentice 09/16/17 Dale Figueroa RN [address] [facility] [address] [place] [address] Registered Nurse Tinsmith Apprentice 11/19/17 Jarrod Ramirez MD [address] [facility] [address] [place] [address] Referring Physician Transplant Hepatology 01/01/18 Leena Alfaro, RN Tinsmith Apprentice Transplant 05/07/19 José Manuel Antoine MD [address] [facility] [address] [place] [address] Medical Oncologist/Hematologis t Medical Oncology 11/06/21 Isreal Morgan MD [address] [facility] [address] [place], [place] [address] Consulting Physician Otolaryngology 11/06/21 Temo Shepard MD [address] [facility] [address] [place], [place] [address] Radiation Oncologist Radiation Oncology 11/06/21 documented as of this encounter
--- OUTSIDE RECORDS SUMMARY | 2024-09-12 09:14 | XMS_ITS | Encounter Summary ---
Author Organization [facility] [employer] [facility] Address [address] [place] [address] Phone Care Team Providers Care Stained Glass Artist Name Role Phone Celia Mayberry MD Primary Care Provider Samantha Alberto RN Unavailable [phone] Meaghan Carrera RN Unavailable [phone] Dale Figueroa RN Unavailable Jarrod Ramriez MD Unavailable Leena Alfaro RN Unavailable [phone] José Manuel Antoine MD Unavailable [phone] Isreal Morgan MD Unavailable [phone] Temo Shepard MD Unavailable [phone] Encounter Details Date Type Department Care Team (Latest Contact Info) Description 10/29/2016 Orders Only [facility] CON[facility] Scanning, Provider Social History Tobacco Use Types Packs/Day Years Used Date Smoking Tobacco: Never Assessed Sex and Gender Information Value Date Recorded Sex Assigned at Not on file 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 Gender Identity Not on file Sexual Orientation Not on file documented as of this encounter Plan of Treatment Scheduled Procedures Name Priority Associated Diagnoses Date/Ti me COLONOSCOPY Encounter for health-related screening documented as of this encounter Procedures Procedure Name Priority Date/Time Associated Diagnosis Comments VASCULAR LABORATORY REPORT 10/29/2016 7:07 PM CDT documented in this encounter Results * VASCULAR LABORATORY REPORT (10/29/2016 7:07 PM CDT) Anatomical Region Laterality Modality Ultrasound us Provider Scanning CV VASCULAR PROCEDURES Final R esult documented in this encounter Visit Diagnoses Not on filedocumented in this encounter Additional Health Concerns Infection Onset Date Last Indicated Resolved Time C. difficile Comment:12/11/2021 IP Review: per current RN, no active diarrhea, old flag, OK to come off of C.dif precautions. Kacie Washburn RN generated from [facility] 09/08/2014 09/08/2014 12/11/2021 4:26 PM C DT documented as of this encounter Care Teams Stained Glass Artist Relationship Specialty Start Date End Date Celia Mayberry MD [address] [place] [id number] PCP - General 08/06/16 Samantha Alberto RN [address] [address] Contract Manager 09/16/17 Meaghan Carrera RN [address] [address] Contract Manager 09/22/17 Dale Figueroa RN [address] [address] Registered Nurse Contract Manager 11/19/17 Jarrod Ramirez MD [address] [address] Referring Physician Transplant Hepatology 01/01/18 Leena Alfaro, ROSHNI Contract Manager Transplant 05/07/19 José Manuel Antoine MD [address] [facility] [address] [place] [address] Medical Oncologist/Hematologis t Medical Oncology 11/06/21 Isreal Morgan MD [address] [facility] [address] [place] [address] Consulting Physician Otolaryngology 11/06/21 Temo Shepard MD [address] [facility] [address] [place] [address] Radiation Oncologist Radiation Oncology 11/06/21 documented as of this encounter
--- OUTSIDE RECORDS SUMMARY | 2024-09-12 09:14 | XMS_ITS | Encounter Summary ---
Author Organization [facility] [employer] [facility] Address [address] [place] [address] Phone Care Team Providers Care Dopeman Name Role Phone Celia Mayberry MD Primary Care Provider Samantha Alberto RN Unavailable [phone] Meaghan Carrera RN Unavailable Dale Figueroa RN Unavailable Jarrod Ramirez MD Unavailable [phone] Leena Alfaro RN Unavailable [phone] José Manuel Antoine MD Unavailable [phone] Isreal Morgan MD Unavailable [phone] Temo Shepard MD Unavailable [phone] Encounter Details Date Type Department Care Team (Latest Contact Info) Description 12/08/2016 Orders Only [facility] Scanning, Provider Social History Tobacco Use Types Packs/Day Years Used Date Smoking Tobacco: Never Assessed Sex and Gender Information Value Date Recorded Sex Assigned at Not on file 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 Gender Identity Not on file Sexual Orientation Not on file documented as of this encounter Plan of Treatment Scheduled Procedures Name Priority Associated Diagnoses Date/Ti me COLONOSCOPY Encounter for health-related screening documented as of this encounter Procedures Procedure Name Priority Date/Time Associated Diagnosis Comments VASCULAR LABORATORY REPORT 12/08/2016 10:14 AM CDT documented in this encounter Results * VASCULAR LABORATORY REPORT (12/08/2016 10:14 AM CDT) Anatomical Region Laterality Modality Ultrasound us Provider Scanning CV VASCULAR PROCEDURES Final R esult documented in this encounter Visit Diagnoses Not on filedocumented in this encounter Additional Health Concerns Infection Onset Date Last Indicated Resolved Time C. difficile Comment:12/11/2021 IP Review: per current RN, no active diarrhea, old flag, OK to come off of C.dif precautions. Kacie Washburn RN generated from [facility] 09/08/2014 09/08/2014 12/11/2021 4:26 PM C DT documented as of this encounter Care Teams Dopeman Relationship Specialty Start Date End Date Celia Mayberry MD [address] [place] [id number] PCP - General 08/06/16 Samantha Alberto RN [address] [address] Construction Rep 09/16/17 Meaghan Carrera RN [address] [address] Construction Rep 09/22/17 Dale Figueroa RN [address] [address] Registered Nurse Construction Rep 11/19/17 Jarrod Ramirez MD [address] [address] Referring Physician Transplant Hepatology 01/01/18 Leena Alfaro, ROSHNI Construction Rep Transplant 05/07/19 José Manuel Antoine MD [address] [facility] [address] [place] [address] Medical Oncologist/Hematologis t Medical Oncology 11/06/21 Isreal Morgan MD [address] [facility] [address] [place] [address] Consulting Physician Otolaryngology 11/06/21 Temo Shepard MD [address] [facility] [address] [place] [address] Radiation Oncologist Radiation Oncology 11/06/21 documented as of this encounter
--- OUTSIDE RECORDS SUMMARY | 2024-09-12 09:14 | XMS_ITS | Clinical Summary ---
Author Organization [facility] Address [address] [place] [address] Care Team Providers Care Photographic Process Attendant Name Role Phone Celia Mayberry MD Primary Care Provider Dale Figueroa RN Unavailable Jarrod Ramirez MD Unavailable [phone] Leena Alfaro RN Unavailable José Manuel Antoine MD Unavailable Isreal Morgan MD Unavailable Temo Shepard MD Unavailable Allergies Active Allergy Reactions Criticality Noted Date Comments No Known Allergies Other (See comments) Low Reaction: Medications levothyroxine (SYNTHROID, LEVOTHROID) 88 mcg tabletIndicatio ns:hypothyroidi sm Take 1 tablet (88 mcg total) by mouth lithographers printer before breakfast 8 Active BD ULTRA-FINE SHORT PEN NEEDLE 31 gauge x /16 needle 8 Active temazepam (RESTORIL) 30 mg [...] mg) by mouth daily 90 tablet 3 07/1108/28/19 Discontinu ed(Reorder ) Active Problems Patient Care Coordination No te Formatting of this note migh t be different from the original. Lab Name: [facility] Phone: Timeframe orders are good [...] (11/06/2021): Added automatically from request for surgery [id number] Encounter for long-term (cur rent) use of [...] acceptable. Assessment & Plan (05/10/2020 5:58 PM SAMPLER RADIOACTIVE WASTE): He has stable allograft function with normal [...] follows with Dr. Ramirez in Hepatology at [facility]. Currently, not on any treatment at [...] 03/19/2016 09/18/2022 Chronic viral hepatitis C 06/03/2011 Encounters Date Type Department Care Team Description 09/10/2024 8:33 AM CDT - 09/10/2024 11:24 AM CDT Emergency [facility] Emergency Department [address] [place] [address] Shakir Sumner MD Acute bilateral thoracic back pain (Primary Dx) Discharge Disposition: Discharge to home or self care 09/03/2024 9:00 AM CDT Telemedicine [facility] Nephrology [address] [facility] [address] [place] [address] [place] [address] Senait Cloud NP Kidney replaced by transplant (Primary Dx); Encounter for aftercare following kidney transplant; Encounter for long-term (current) use of high-risk medication; Hypertension, unspecified type 08/31/2024 Lab [facility] Transplant Kidney [address] [facility] [address] [phone] [place] [address] Tamara Ashraf MD 08/27/2024 Lab [facility] Transplant Kidney [address] [facility] [address] [phone] [place] [address] Tamara Ashraf MD 08/27/2024 Telephone [facility] Transplant Kidney [address] [phone] [place] [address] Alexia Urias from Last 3 Months Immunizations Immunization Administration Dates Next Due Hep B Vaccine 02/25/2018, 8,03/24/2017,02/19 Influenza, Quad, Adjuvantate d, Intramuscular 12/23/2020 Influenza, Quadrivalent, Hig h Dose, Preservative Free, Intrr 02/01/2020 Influenza, Trivalent, Adjuva nted, Intramuscular 02/10/2019 Influenza, Trivalent, High D ose, Split, Preservative Free, Intramuscular 01/24/2018,01/22/2017,01/08/2017,01/18 Influenza, Trivalent, IM (MDV) 01/14/2013 Pfizer SARS-CoV-2 Monovalent Vaccination (12+ Yrs) PURPLE 05/27/2020,06/23/2019 Pneumococcal Polysaccharide PPV23 02/20/2017 ZOSTER LIVE 11/14/2015 Surgical History Surgery Date Site/Laterality Comments TIPS INITIAL 03/22/2013 N/A 2ND ORD VENOUS BILATERAL 04/22/2013 Bilateral IMAGE GUIDED PARACENTESIS ABDOMEN 11/28/2014 N/A CATHETER PORTAL VEIN 11/23/2013 N/A US GUIDED BIOPSY RENAL 02/16/2016 N/A CATHETER PORTAL VEIN 04/20/2013 N/A KIDNEY SURGERY 04/21/2017 - 04/20/2018 Kidney TRansplant LIVER SURGERY 04/21/2013 - 04/20/2014 Liver Transplant Medical History Medical History Date Comments Kidney transplanted Liver transplant status (HCC) Diabetes (HCC) Anxiety Heart disease Thyroid disease Acid reflux Hepatitis Hyperlipidemia Depression Hepatitis C Chronic kidney disease Hypertension Type 2 diabetes mellitus (HCC) Hypothyroidism Chronic viral hepatitis C (HCC) 06/03/2011 Dental disease Cancer (HCC) Family History Medical History Relation Name Comments Cirrhosis Brother 1 Cirrhosis - (Ad ded by TW Conv) Hepatitis Brother 1 Liver disease Brother 1 Alcohol abuse Brother 2 Alcoholism - ( Added by TW Conv) Hepatitis Brother 2 Diabetes Father Family history of diabetes mellitus - (Added by TW Conv)/Family history of diabetes mellitus - (Added by TW Conv) Throat cancer Father Diabetes Mother Family history of diabetes mellitus - (Added by TW Conv)/Family history of diabetes mellitus - (Added by TW Conv) Pancreatic cancer Mother Diabetes Other 1 Family history of diabetes mellitus - (Added by TW Conv) Diabetes Other 2 Family history of diabetes mellitus - (Added by TW Conv) Diabetes Other 3 Family history of diabetes mellitus - (Added by TW Conv) Diabetes Other 4 Family history of diabetes mellitus - (Added by TW Conv) Cancer Sister 1 Hepatitis Sister 1 Liver disease Sister 1 Cancer Sister 2 Relation Name Status Comments Brother 1 Brother 2 Father Mother Other 1 Other 2 Other 3 Other 4 Sister 1 Sister 2 Social History Tobacco Use Types Packs/Day Years [...] on file Legal 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 Gender Identity Not on file Sexual Orientation Not on file Obstetrics History Last Filed Vital Signs Vital Sign Reading [...] Date/Ti me COLONOSCOPY Encounter for health-related screening Health Maintenance Due Date Last Done Comments Albumin Creatinine Ratio, Urine 1945 Depression Screening 1945 Foot Exam 1946 Dilated Eye Exam 1956 DTaP/Tdap/Td Vaccine (1 - Tdap) 1957 Well Visit 65+ 2011 Zoster Vaccine (1 of 2) 01/09/2016 11/14/2015 Pneumococcal vaccine 65+ (2 of 2 - PCV) 02/20/2018 02/20/2017 TSH Level 10/19/2021 10/19/2020, 06/2018, 11/24/2016 Fall Risk Assessment 12/13/2022 12/13/2021, 12/06/19 Covid-19 Vaccine (2023-2 5 season) 2023 01/21/2021, 06/22/2020, 05/27/2020, Additional history exists Influenza Vaccine (Season Ended) 2024 12/23/2020, 02/01/2020, 02/10/2019, Additional history exists Hemoglobin A1C 02/27/2025 08/27/2024, 12/2024, 10/27/2023, Additional history exists Lipid Panel 08/27/2025 08/27/2024, 05/2023, 10/21/2022, Additional history exists eGFR 08/27/2025 08/27/2024, 12/2024, 10/27/2023, Additional history exists Colon Cancer Screening-CT Colonography Discontinued 11/16/2014 Colon Cancer Screening-Colonoscopy Discontinued 11/16/2014 Colon Cancer Screening-DNA Stool Discontinued 11/17/19 15 Colon Cancer Screening-FIT Discontinued 11/16/2014 Colon Cancer Screening-FOBT Discontinued 11/16/2014 Colon Cancer Screening-Sigmoidoscopy Discontinued 11/16/2014 Colorectal Cancer Screening Discontinued Abdominal Aortic Aneurysm (A AA) Screen Completed 01/27/2017, 01/10/2015, 09/10/2014, Additional history exists Hepatitis C Screening Completed 05/09/2021 , 05/10/2020, 02/19/2019, Additional history exists Procedures Procedure Name Priority Date/Time Associated Diagnosis [...] 8:31 AM CDT 09/10/2024 8:31 AM CDT us Notinfile Unknown LAB POCT ORDERABLES - DEVICE F inal Result REYNALDO JASSO [facility] Department [place] [address] * Tacrolimus level trough (08/27/2024) SCRIBED Tacrolimus, trough 11 5 - 20 TXP NO LAB FOUND Blood 08/27/2024 Result [facility] Provider MD LAB BLOOD ORDERABLES Edit ed Result - Final Performing Organization Address [facility] de Phone Number TXP NO LAB FOUND * (ABNORMAL) CBC with auto differential (08/27/2024) SCRIBED WBC 5.8 4.2 - 10.8 k/cumm TXP NO LAB FOUND SCRIBED Hemoglobin 14.2 13.2 - 17 g/dL TXP NO LAB FOUND SCRIBED Hematocrit 43.9 39.3 - 50 % TXP NO LAB FOUND SCRIBED Platelets 116(A) 150 - 400 k/cumm TXP NO LAB FOUND Blood 08/27/2024 Result [facility] Provider MD LAB BLOOD ORDERABLES Edit ed Result - Final Performing Organization Address [facility] de Phone Number TXP NO LAB FOUND * Phosphorus (08/27/2024) SCRIBED Phosphorus 3.2 2.5 - 4.5 mg/dl TXP NO LAB FOUND Blood 08/27/2024 Result [facility] Provider MD LAB BLOOD ORDERABLES Terra l Result Performing Organization Address [facility] de Phone Number TXP NO LAB FOUND * (ABNORMAL) Hemoglobin A1c (08/27/2024) SCRIBED Hemoglobin A1c 6.5(A) 4.0 - 6.0 % TXP NO LAB FOUND Blood 08/27/2024 Result [facility] Provider MD LAB BLOOD ORDERABLES Terra l Result Performing Organization Address [facility] de Phone Number TXP NO LAB FOUND * Gamma GT (08/27/2024) SCRIBED GGT 16 12 - 58 TXP NO L AB FOUND Blood 08/27/2024 [facility] Provider MD LAB BLOOD ORDERABLES Terra l Result Performing Organization Address [facility] Co de Phone Number TXP [...] NONE TXP NO LAB FOUND Blood 08/27/2024 [facility] Provider MD LAB BLOOD ORDERABLES Terra l Result Performing Organization Address [facility] de Phone Number TXP NO LAB [...] NO LAB FOUND SCRIBED eGFR in NonAfrican Cambodian 45 >60 TXP NO LAB FOUND Blood 08/27/2024 Result [facility] Provider LAB BLOOD ORDERABLES Terra l Result Performing Organization Address [facility] de Phone Number TXP NO LAB FOUND * TSH (10/19/2020) Scribed TSH 0.58 0.47 - 4.68 mcU/mL TXP NO LAB FOUND Blood specimen (specimen) 10/19/2020 Result [facility] Provider LAB BLOOD ORDERABLES Terra l Result Performing Organization Address [facility] de Phone Number TXP NO LAB FOUND * Hepatitis C (HCV) RNA PCR, quantitative (02/19/2019) SCRIBED HCV RNA Nt. Det. 0 - <1.18 IUnit/mL TXP NO LAB FOUND Blood specimen (specimen) 02/19/2019 Result [facility] Provider LAB MICROBIOLOGY - GENERA L ORDERABLES Final Result Performing Organization Address [facility] de Phone Number TXP NO LAB FOUND [...] agrees with it. ACC# Date Time Exam [id number] Jan 27, 2017 13:24:[id number] Abd and Pelvis wo cont EXAMINATION: [...] ORTIZ M.D. on Jan 27 2017 1:45P [id number] CONNORS M.D. FINAL REPORT The radiology attending physician has personally reviewed this study, and has reviewed and/or edited this written report and agrees with it. Attending: CADEN MARTINEZ Requesting: Tamara Ashraf Requesting Fax: Attending Fax: Attending ID: [id number] Requesting ID: [id number] Report To 1 ID: [id number] Report To 1 Name: , Report To 1 FAX: NextGen Order #: Procedure Note Miscellaneous, Not In File / Provider, MD Sofia - 01/28/2017 Jose CONNORS M.D. FINAL REPORT The radiology attending physician has personally reviewed this study, and has reviewed and/or edited this written report and agrees with it. ACC# Date Time Exam [id number] Jan 27, 2017 13:24:[id number] Abd and Pelvis wo cont EXAMINATION: [...] ORTIZ M.D. on Jan 27 2017 1:45P [id number] BERRY M.D. FINAL REPORT The radiology attending physician has personally reviewed this study, and has reviewed and/or edited this written report and agrees with it. Attending: CADEN MARTINEZ Requesting: Tamara Ashraf Requesting Fax: Attending Fax: Attending ID: [id number] Requesting ID: [id number] Report To 1 ID: [id number] Report To 1 Name: , Report To 1 FAX: NextGen Order #: Tamara Ashraf MD IMG CT PROCEDURES Edited Result - Final * COLONOSCOPY REPORT (11/16/2014) Anatomical Region Laterality Modality Other Narrative 11/16/2014 Ordered by an unspecified provider. Historical Provider GI PROCEDURE ORDERABLES F inal Result from Last 3 Months or Most Recently Relevant to Health Maintenance Insurance MEDICARE [facility] [place] [address] MEDICARE [facility] Address: [facility] [address] [place] [address] [facility] [place] [address] [place] [address] MEDICARE [facility] [place] [address] Advance Directives For more information, please contact: [phone] Documents on File Type Date Recorded Patient Deck Worker Expl anation ADVANCE DIRECTIVE 11/14/2021 7:21 AM Power of Repair [employer] ADVANCE DIRECTIVE 08/26/2017 12:00 AM * Full Code (Latest Code Status on File) Date Activated Date Inactivated Comments 12/11/2021 1:33 PM 12/13/2021 3:52 PM * Full Code Date Activated Date Inactivated Comments 04/07/2019 8:21 AM 04/07/2019 1:49 PM Care Teams Photographic Process Attendant Relationship Specialty Start Date End Date Celia Mayberry MD [address] [facility] [address] [facility] [address] [place] [address] PCP - General 08/06/16 Dale Figueroa RN [address] [address] Registered Nurse Foreclosure Paralegal 11/19/17 Jarrod Ramirez MD [address] [facility] [address] [place] [address] Referring Physician Transplant Hepatology 01/01/18 Leena Alfaro, RN Foreclosure Paralegal Transplant 05/07/19 José Manuel Antoine MD [address] [facility] [address] [place] [address] Medical Oncologist/Hematologis t Medical Oncology 11/06/21 Isreal Morgan MD [address] [facility] [address] [place] [address] Consulting Physician Otolaryngology 11/06/21 Temo Shepard MD [address] [facility] [address] [place] [address] Radiation Oncologist Radiation Oncology 11/06/21
--- NOTE | 2024-09-12 09:16 | ED_ITS ---
HPI - General Adult General Chief complaint: Weakness Stated complaint: weakness Time Seen by Provider: 09/12/24 09:05 History of Present Illness HPI narrative: 79-year-old male with history liver transplant and kidney transplant presented to the emergency department for evaluation for increased altered mental status after taking his medications this morning. states that the patient was having some back pain on Friday and did present to [facility] for evaluation and patient was discharged to home with diagnosis of back spasms. states the patient was more confused today by attempting to take his nighttime medications in the morning and putting on her coat. Patient does get the majority of his care at [facility]. states she was unsatisfied with the care at [facility] so instead of going to [facility] they requested to present to [facility]. At time of evaluation patient is confused to the location, he believes he is at [facility]. Patient states he is having some right lower quadrant abdominal pain and lower back pain. Patient had a liver transplant in 2014 and a kidney transplant in 2018 and does take tacrolimus. Related Data Home Medications ?Medication ?Instructions ?Recorded ?Confirmed ?Last Taken ?Type aspirin 81 mg tablet,delayed 81 mg PO DAILY 05/18/19 08/04/24 Unknown History release (Adult Low Dose Aspirin) tacrolimus 1 mg capsule, 1 mg PO Q12H 09/24/21 08/04/24 Unknown History immediate-release cholecalciferol (vitamin D3) 50 50 mcg PO DAILY 10/23/21 08/04/24 Unknown History mcg (2,000 unit) capsule Allergies Allergy/AdvReac Type Severity Reaction Status Date / Time No Known Allergies Allergy Unknown Verified 08/04/24 08:49 Review of Systems 2 Review of Systems: All systems reviewed & are unremarkable except as noted in HPI and below PMFSH Past Medical History Medical History (Updated 09/12/24 @ 12:55 by Kristian Contreras MD) Acquired hypothyroidism 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 Chronic diastolic CHF (congestive heart failure), NYHA class 2 Chronic fatigue and malaise Chronic pain syndrome Diabetic polyneuropathy associated with type 2 diabetes mellitus Essential (primary) hypertension COBY (generalized anxiety disorder) Gastro-esophageal reflux disease without esophagitis Hyperparathyroidism due to renal insufficiency Major depressive disorder, recurrent, moderate Type 2 diabetes mellitus with hyperglycemia Vitamin D deficiency, unspecified Weakness generalized Surgical History Surgical History Status post kidney transplant Status post liver transplant Family History Family History Mother Hypertension Family history of elevated blood lipids Family history of diabetes mellitus in first degree relative Family history of malignant neoplasm of uterus, Onset Age: 63 Patient's mother is Father Family history of throat cancer, Onset Age: 63 Patient's father is Social History Social History Social History: Smoking status: Former smoker Tobacco type: cigarettes Second hand tobacco smoke exposure: No Smoking end date: 04/21/13 Alcohol intake: never Substance use: never Substance use type: does not use Do You Feel Safe in your Home?: Yes Lack of Transportation: No Lack of Food: Never True Current Housing: I Have Housing Concerned About Future Housing: No Difficulty Paying Gas/Electric Bills: No Difficulty Paying for Meds: No Currently Unemployed: YES Education: Decline to Answer Difficulty w/ Childcare or Family Care: No Living arrangements: with family Occupation/Education: retired Gender identity (if verbalized by the patient): Male Sexual Orientation (if Verbalized by the Patient): Straight or Heterosexual Exam 2 Narrative: APPEARANCE: Tired appearing HEAD: normocephalic, atraumatic. EYES: PERRLA/EOMI, conjunctivae clear. NOSE: Normal no drainage EARS:TMS clear with good light reflex. THROAT: Pharynx clear, no exudate. NECK: Supple. No adenopathy, no masses. RESPIRATORY: Airway patent, respirations nonlabored. Clear to auscultation bilaterally, no rales, rhonchi, wheezing. CARDIOVASCULAR: Regular rate and rhythm without murmurs rubs or gallops. ABDOMINAL: Mild lower abdominal tenderness to palpation MUSCULOSKELETAL: Moves all extremities. Strength/ROM intact, No edema, No calf tenderness. NEURO: Alert. Cranial nerves II through XII intact. Good gait. Good coordination SKIN: Warm, dry. Normal Color Course Vital Signs Vital signs: Vital Signs Pulse Rate 78 09/12/24 09:10 Respiratory Rate 19 09/12/24 09:10 Blood Pressure 127/70 09/12/24 09:10 Pulse Oximetry 96 09/12/24 09:10 Temperature 97.7 F 09/12/24 12:30 Pulse Rate 81 09/12/24 12:30 Respiratory Rate 15 09/12/24 12:30 Blood Pressure 110/68 09/12/24 12:30 Pulse Oximetry 98 09/12/24 12:30 Oxygen Delivery Room Air 09/12/24 09:21 Medical Decision Making MDM Narrative Medical decision making narrative: 71-year-old male presents emergency department for evaluation increased weakness today. Patient does take OxyContin and did have OxyContin just prior to arrival. At re-evaluation patient is alert appropriate and only reports chronic back pain. Patient is currently afebrile with no leukocytosis and hemoglobin of 10. Patient's INR is 1.1. Patient does have mild elevation of his potassium at 5.2 and a creatinine of 1.59 with no known baseline. Patient does have a mildly elevated CRP but UA is negative for infection, ESR is mildly elevated. Patient was negative for influenza RSV and for COVID. CT chest abdomen pelvis showed no acute abnormalities. Head CT was negative. Patient states he does feel back at his baseline and patient is more alert and appropriate and patient is requesting to be discharged home.. Low concern for significant infectious etiology. Patient was encouraged close follow-up with his primary care physician particularly if he has any worsening symptoms. Differential Diagnosis Differential Diagnosis: UTI, subarachnoid hemorrhage, subdural hematoma, kidney failure, acute kidney, COVID, RSV, influenza Vital Signs Vital Signs: Vital Signs Pulse Rate 78 09/12/24 09:10 Respiratory Rate 19 09/12/24 09:10 Blood Pressure 127/70 09/12/24 09:10 Pulse Oximetry 96 09/12/24 09:10 Temperature 97.7 F 09/12/24 12:30 Pulse Rate 81 09/12/24 12:30 Respiratory Rate 15 09/12/24 12:30 Blood Pressure 110/68 09/12/24 12:30 Pulse Oximetry 98 09/12/24 12:30 Oxygen Delivery Room Air 09/12/24 09:21 Lab Data Lab results reviewed: Yes I reviewed the patient's lab results. 09/12/24 09:37 09/12/24 09:37 Labs: Lab Results 09/12/24 09/12/24 09/12/24 Range/Units 09:18 09:37 11:08 WBC 6.2 (4.5-10.0) K/mm3 RBC 3.26 L (4.6-6.20) M/mm3 Hgb 10.0 L (14.0-18.0) g/dL Hct 30.9 L (42.0-52.0) % MCV 94.8 (80-100) fl MCH 30.7 (26-34) pg MCHC 32.4 (32-36) g/dl RDW 12.1 (11.5-14.5) % Plt Count 141 L (150-375) k/mm3 MPV 11.0 H (7.4-10.4) fl Immature Gran % (Auto) 1.0 H (0-0.5) % Neut % (Auto) 68.5 (45.5-73.1) % Lymph % (Auto) 18.5 (18.3-44.2) % [place]urry % (Auto) 11.3 H (2.6-8.5) % Eos % (Auto) 0.5 (0-4.4) % Baso % (Auto) 0.2 (0.2-1.2) % Lymph # (Auto) 1.15 (0.9-3.2) K/mm3 [place]urry # (Auto) 0.7 H (0.1-0.6) K/mm3 Eos # (Auto) 0.0 (0-0.3) K/mm3 Baso # (Auto) 0.0 (0.0-0.1) K/mm3 Abs Immat Gran (auto) 0.06 H (0.00-0.031) K/mm3 Absolute Neuts (auto) 4.3 (1.3-6.7) K/mm3 Absolute Nucleated RBC 0.000 (0.0-0.012) K/mm3 Nucleated RBC % 0.0 (0.0-0.2) % % Immature Plt Fraction 3.3 (0.9-11.2) % ESR 55 H (0-20) mm/hr PT 14.5 (11.1-14.7) Seconds INR 1.1 APTT 25.7 (22.3-36.8) Seconds Sodium 130 L (137-145) mmol/L Potassium 5.2 H (3.4-5.0) mmol/L Chloride 98 (98-107) mmol/L Carbon Dioxide 25 (22-30) mmol/L Anion Gap 7 (4-12) mmol/L BUN 42 H (9-20) mg/dL Creatinine 1.59 H (0.7-1.3) mg/dL Estim Creat Clear Calc 29 ml/min Estimated GFR 42 L (59 - ) Glucose 229 H (65-110) mg/dL POC Capillary Glucose 248 H (65-105) mg/dl Lactic Acid 0.9 (0.7-2.0) mmol/L Calcium 8.5 (8.4-10.2) mg/dL Total Bilirubin 1.2 (0.2-1.3) mg/dL AST 43 (17-59) U/L ALT 45 (6-50) U/L Alkaline Phosphatase 87 (38-126) U/L Ammonia < 9 L (9-30) umol/L C-Reactive Protein 7.9 H (<1.0) mg/dL Total Protein 7.0 (6.3-8.2) g/dL Albumin 3.4 L (3.5-5.1) g/dL Lipase < 10 L (23-300) U/L Procalcitonin 0.2 ng/mL Urine Color Dark yellow (Yellow) Urine Appearance Clear (Clear) Urine pH 5.0 (5.0-9.0) Ur Specific [place] 1.020 (1.001-1.035) Urine Protein Trace (Negative) mg/dL Urine Glucose (UA) Negative (Negative) mg/dL Urine Ketones Trace H (Negative) mg/dL Ur Blood (Man) Negative (Negative) Urine Nitrate Negative (Negative) Urine Bilirubin 1+ H (Negative) Urine Urobilinogen 1.0 (<2.0) mg/dL Leukocyte Esterase Rfl Trace H (Negative) KAREL/UL Urine RBC 0-2 (0-2) /hpf Urine WBC 0-5 (0-3) /hpf Ur Squamous Epith Cells None seen (Few) /hpf Urine Bacteria None seen /hpf Urine Casts 11-20 Hyaline Casts Present (None) /lpf Tacrolimus Pending Influenza A (RT-PCR) Negative (Negative) Influenza B (RT-PCR) Negative (Negative) RSV (RT-PCR) Negative (Negative) SARS-CoV-2 RNA (RT-PCR) Negative (Negative) Imaging Data Radiologist's impression: Impressions Head CT 09/12/24 10:21 Impression: No acute intracranial hemorrhage or suspicious mass effect. Inflammatory sinus disease, as detailed above. Chest/Abdomen/Pelvis CT 09/12/24 10:58 IMPRESSION: No hollow or solid visceral organ injury. No acute fractures. Innumerable nonacute findings, as detailed above. Discharge Plan Discharge Clinical Impression: Chronic back pain Patient Disposition: Home Condition: Stable Instructions: Antibiotic Form, General Patient Instructions Additional Instructions: Have close follow-up with your physicians for recheck of your kidney function. Avoid taking narcotics as these can lead to increased confusion and weakness. If you have any worsening symptoms call return to the emergency department. Patient Language: Macedonian Prescriptions: No Action cholecalciferol (vitamin D3) 50 mcg (2,000 unit) capsule 50 mcg PO DAILY (DME) blood-glucose meter [OneTouch Ultra2 Meter] [facility] See Rx Instructions .Route Qty: 1 0RF Rx Instructions: use to check sugars once a day (DME) OneTouch Ultra Blue Test Strip Strip See Rx Instructions .ROUTE .MEDSUPPLY Qty: 100 6RF Rx Instructions: As directed to check glucose TID aspirin [Adult Low Dose Aspirin] 81 mg tablet,delayed release (DR/EC) 81 mg PO DAILY tacrolimus 1 mg capsule 1 mg PO Q12H omeprazole 20 mg capsule,delayed release(DR/EC) See Rx Instructions .ROUTE .COMPLEX Qty: 90 3RF Dose Instruction: TAKE 1 CAPSULE EVERY DAY Rx Instructions: TAKE 1 CAPSULE EVERY DAY carvedilol 3.125 mg tablet See Rx Instructions .ROUTE .COMPLEX Qty: 90 3RF Dose Instruction: TAKE 1 TABLET AT BEDTIME WITH FOOD Rx Instructions: TAKE 1 TABLET AT BEDTIME WITH FOOD levothyroxine 88 mcg tablet See Rx Instructions .ROUTE .COMPLEX Qty: 90 3RF Dose Instruction: TAKE 1 TABLET EVERY MORNING Rx Instructions: TAKE 1 TABLET EVERY MORNING temazepam 30 mg capsule 30 mg PO QHS PRN (Reason: sleep) Qty: 30 0RF oxycodone 5 mg tablet 5 mg PO Q6H PRN (Reason: pain) Qty: 120 0RF Follow-up/Referrals: Shakir Lim MD [Primary Care Provider] -
[2024-09-12 09:25] LABS: Glucose Point of Care 248 mg/dl (65-105)
[2024-09-12 09:54] LABS: Basophils Percent Auto 0.2 % (0.2-1.2); Eosinophils Percent Auto 0.5 % (0-4.4); Hematocrit 30.9 % (42.0-52.0); Immature Granulocyte Absolute 0.06 K/mm3 (0.00-0.031); Immature Platelet Fraction Pct 3.3 % (0.9-11.2); Lymphocytes Absolute Auto 1.15 K/mm3 (0.9-3.2); Lymphocytes Percent Auto 18.5 % (18.3-44.2); Mean Corpuscular HGB Conc 32.4 g/dl (32-36); Mean Corpuscular Hemoglobin 30.7 pg (26-34); Mean Corpuscular Volume 94.8 fl (80-100); Monocytes Absolute Auto 0.7 K/mm3 (0.1-0.6); Monocytes Percent Auto 11.3 % (2.6-8.5); Neutrophils Absolute Auto 4.3 K/mm3 (1.3-6.7); Neutrophils Percent Auto 68.5 % (45.5-73.1); Platelet Count Result 141 k/mm3 (150-375); Red Blood Count 3.26 M/mm3 (4.6-6.20); Red Cell Distribution Width 12.1 % (11.5-14.5); White Blood Count 6.2 K/mm3 (4.5-10.0)
[2024-09-12 09:57] LABS: Ammonia < 9 umol/L (9-30)
[2024-09-12 09:59] LABS: INR 1.1; Prothrombin Time 14.5 Seconds (11.1-14.7)
[2024-09-12 10:00] LABS: Lactic Acid Reflex 0.9 mmol/L (0.7-2.0); Partial Thromboplastin Time 25.7 Seconds (22.3-36.8)
[2024-09-12 10:02] LABS: Alanine Aminotransferase 45 U/L (6-50); Albumin Level 3.4 g/dL (3.5-5.1); Alkaline Phosphatase 87 U/L (38-126); Anion Gap 7 mmol/L (4-12); Aspartate Amino Transferase 43 U/L (17-59); Bilirubin,Total 1.2 mg/dL (0.2-1.3); Blood Urea Nitrogen 42 mg/dL (9-20); Calcium 8.5 mg/dL (8.4-10.2); Carbon Dioxide 25 mmol/L (22-30); Chloride 98 mmol/L (98-107); Estimated CRCL calculation 29 ml/min; Estimated Glomerular Filt Rate 42; Glucose 229 mg/dL (65-110); Potassium 5.2 mmol/L (3.4-5.0); Sodium 130 mmol/L (137-145)
[2024-09-12 10:03] LABS: Lipase < 10 U/L (23-300)
[2024-09-12 10:04] LABS: CRP 7.9 mg/dL (<1.0)
[2024-09-12 10:15] LABS: Procalcitonin 0.2 ng/mL
[2024-09-12 10:25] LABS: Influenza A QL RT-PCR Negative (Negative); Influenza B QL RT-PCR Negative (Negative); RSV RNA, RT-PCR Negative (Negative); SARS-CoV-2 RNA PCR Negative (Negative)
[2024-09-12 10:29] LABS: Erythrocyte Sedimentation Rate 55 mm/hr (0-20)
[2024-09-12 11:31] LABS: Add Urine Microscopic? YES; Appearance Urine Clear (Clear); Bacteria Urine None Seen /hpf; Bilirubin Urine 1+ (Negative); Blood Urine Negative (Negative); Color Urine Dark Yellow (Yellow); Glucose Urine UA Negative (Negative); Hyaline Casts Urine Present /lpf; Ketones Urine Trace mg/dL (Negative); Leukocyte Esterase Ur Trace LEU/UL (Negative); Nitrate Urine Negative (Negative); Protein Urine Trace mg/dL (Negative); RBC Urine 0-2 /hpf (0-2); Squamous Epithelial Cell Urine None Seen /hpf (Few); WBC Urine 0-5 /hpf (0-3)
[2024-09-15 15:03] LABS: Tacrolimus Prograf 7.9 mcg/L
== END 2024-09-12 13:21 | disposition home or self-care (01) ==
PROVIDERS: Emergency Provider Emergency Medicine; PCP Family Medicine
DX: M54.9 Dorsalgia, unspecified (principal); G89.29 Other chronic pain; E03.9 Hypothyroidism, unspecified; I11.0 Hypertensive heart disease with heart failure; I50.9 Heart failure, unspecified; D64.9 Anemia, unspecified; E11.42 Type 2 diabetes mellitus with diabetic polyneuropathy; F41.9 Anxiety disorder, unspecified; K21.9 Gastro-esophageal reflux disease without esophagitis; F32.A Depression, unspecified; Z94.4 Liver transplant status; Z94.0 Kidney transplant status
CPT/HCPCS: 36415; 70450; 71250; 74176; 80053; 80197; 81001; 82140; 82948; 83605; 83690; 84145; 85025; 85055; 85610; 85652; 85730; 86140; 87040; 87181; 87637; 93005; 99284

== ENCOUNTER 2024-09-13 20:39 | Emergency (ER) | payer MEDICARE, SELFPAY ==
--- OUTSIDE RECORDS SUMMARY | 2024-09-13 20:41 | XMS_ITS | Encounter Summary ---
Author Organization [facility] Healthcare Address [address] [place] [address] Care Team Providers Care Production Material Handler Name Role Phone Celia Mayberry MD Primary Care Provider Samantha Alberto RN Unavailable [phone] Dale Figueroa RN Unavailable Jarrod Ramirez MD Unavailable Leena Alfaro RN Unavailable [phone] José Manuel Antoine MD Unavailable [phone] Isreal Morgan MD Unavailable Temo Shepard MD Unavailable [phone] Encounter Details Date Type Department Care Team (Late st Contact Info) Description 01/27/2019 Orders Only [facility] Health Information Management [address] [place] [address] Scanning, Provider Social History Tobacco Use Types Packs/Day Years Used Date Smoking Tobacco: Former Cigarettes Q uit: 2010 Smokeless Tobacco: Never Alcohol Use Standard Drinks/Week Comments Not Currently 0 (1 standard drink = 0.6 oz pur e alcohol) Sex and Gender Information Value Date Recorded Sex Assigned at Not on file 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 [address] [place] [address] Maintenance Shop Clerk 09/16/17 Dale Figueroa RN [address] [facility] [address] [place] [id number] Registered Nurse Maintenance Shop Clerk 11/19/17 Jarrod Ramirez MD [address] [facility] [address] [place] [address] Referring Physician Transplant Hepatology 01/01/18 Leena Alfaro, RN Maintenance Shop Clerk Transplant 05/07/19 José Manuel Antoine MD [address] [facility] [address] [place] [address] Medical Oncologist/Hematologis t Medical Oncology 11/06/21 Isreal Morgan MD [address] [facility] [address] [place], [place] [id number] Consulting Physician Otolaryngology 11/06/21 Temo Shepard MD [address] [facility] [address] [place], [place] [id number] Radiation Oncologist Radiation Oncology 11/06/21 documented as of this encounter
--- OUTSIDE RECORDS SUMMARY | 2024-09-13 20:41 | XMS_ITS | Clinical Summary ---
Author Organization [facility] Address [address] [place] [address] Care Team Providers Care Staffing Recruiter Name Role Phone Celia Mayberry MD Primary Care Provider Dale Figueroa RN Unavailable Jarrod Ramirez MD Unavailable Leena Alfaro RN Unavailable [phone] José Manuel Antoine MD Unavailable Isreal Morgan MD Unavailable Temo Shepard MD Unavailable Allergies Active Allergy Reactions Criticality Noted Date Comments No Known Allergies Other (See comments) Low Reaction: Medications levothyroxine (SYNTHROID, LEVOTHROID) 88 mcg tabletIndicatio ns:hypothyroidi sm Take 1 tablet (88 mcg total) by mouth lead case manager before breakfast 8 Active BD ULTRA-FINE SHORT [...] be different from the original. Lab Name: [facility] Phone: Timeframe orders are good [...] (11/06/2021): Added automatically from request for surgery [id number] Encounter for long-term (cur rent) use of [...] acceptable. Assessment & Plan (05/10/2020 5:58 PM MANAGER DOMESTIC): He has stable allograft function with normal [...] follows with Dr. Ramirez in Hepatology at [facility]. Currently, not on any treatment at the [...] CDT - 09/10/2024 11:24 AM CDT Emergency [facility] Department [address] [place] [address] Shakir Sumner MD Acute bilateral thoracic back pain (Primary Dx) Discharge Disposition: Discharge to home or self care 09/03/2024 9:00 AM CDT Telemedicine [facility] Nephrology [address] [facility] 5th [place] [address] [place] [address] Senait Cloud NP Kidney replaced by transplant (Primary Dx); Encounter for aftercare following kidney transplant; Encounter for long-term (current) use of high-risk medication; Hypertension, unspecified type 08/31/2024 Lab [facility] Transplant Kidney [address] [facility] [address] 15-26-325 [place] [address] Tamara Ashraf MD 08/27/2024 Lab [facility] Transplant Kidney [address] [facility] [address] 04-24-269 [place] [address] Tamara Ashraf MD 08/27/2024 Telephone [facility] Transplant Kidney [address] 52-26-609 [place] [address] Alexia Urias from Last 3 Months Immunizations [...] on file Legal Sex Male 2:53 AM MANAGER DOMESTIC Gender Identity Not on file Sexual Orientation [...] 8:30 AM CDT Height 172.7 cm (5' 8) 09/10/2024 8:30 AM CDT Body Mass Index [...] DEVICE F inal Result REYNALDO JASSO [facility] Department [place] [address] * Tacrolimus level trough (08/27/2024) SCRIBED Tacrolimus, trough 11 5 - 20 TXP NO LAB FOUND Blood 08/27/2024 Result [facility] Provider MD LAB BLOOD ORDERABLES Edit ed Result - Final Performing Organization Address [facility] de Phone Number TXP NO LAB FOUND * (ABNORMAL) CBC with auto differential (08/27/2024) SCRIBED WBC 5.8 4.2 - 10.8 k/cumm TXP NO LAB FOUND SCRIBED Hemoglobin 14.2 13.2 - 17 g/dL TXP NO LAB FOUND SCRIBED Hematocrit 43.9 39.3 - 50 % TXP NO LAB FOUND SCRIBED Platelets 116(A) 150 - 400 k/cumm TXP NO LAB FOUND Blood 08/27/2024 Result [facility] Provider MD LAB BLOOD ORDERABLES Edit ed Result - Final Performing Organization Address [facility] de Phone Number TXP NO LAB FOUND * Phosphorus (08/27/2024) SCRIBED Phosphorus 3.2 2.5 - 4.5 mg/dl TXP NO LAB FOUND Blood 08/27/2024 Result [facility] Provider MD LAB BLOOD ORDERABLES Terra l Result Performing Organization Address [facility] de Phone Number TXP NO LAB FOUND * (ABNORMAL) Hemoglobin A1c (08/27/2024) SCRIBED Hemoglobin A1c 6.5(A) 4.0 - 6.0 % TXP NO LAB FOUND Blood 08/27/2024 Result [facility] Provider MD LAB BLOOD ORDERABLES Terra l Result Performing Organization Address [facility] de Phone Number TXP NO LAB FOUND * Gamma GT (08/27/2024) SCRIBED GGT 16 12 - 58 TXP NO L AB FOUND Blood 08/27/2024 [facility] Provider MD LAB BLOOD ORDERABLES Terra l Result Performing Organization Address [facility] Co de Phone Number TXP NO [...] NONE TXP NO LAB FOUND Blood 08/27/2024 [facility] Provider MD LAB BLOOD ORDERABLES Terra l Result Performing Organization Address [facility] de Phone Number TXP NO LAB [...] NO LAB FOUND SCRIBED eGFR in NonAfrican Mauritanian 45 >60 TXP NO LAB FOUND Blood 08/27/2024 Result [facility] Provider LAB BLOOD ORDERABLES Terra l Result Performing Organization Address [facility] de Phone Number TXP NO LAB FOUND * TSH (10/19/2020) Scribed TSH 0.58 0.47 - 4.68 mcU/mL TXP NO LAB FOUND Blood specimen (specimen) 10/19/2020 Result [facility] Provider LAB BLOOD ORDERABLES Terra l Result Performing Organization Address [facility] de Phone Number TXP NO LAB FOUND * Hepatitis C (HCV) RNA PCR, quantitative (02/19/2019) SCRIBED HCV RNA Nt. Det. 0 - <1.18 IUnit/mL TXP NO LAB FOUND Blood specimen (specimen) 02/19/2019 Result [facility] Provider LAB MICROBIOLOGY - GENERA L ORDERABLES Final Result Performing Organization Address [facility] de Phone Number TXP NO [...] agrees with it. ACC# Date Time Exam [id number] Jan 27, 2017 13:24:[id number] Abd and Pelvis wo cont EXAMINATION: [...] ORTIZ M.D. on Jan 27 2017 1:45P [id number] CONNORS M.D. FINAL REPORT The radiology attending physician has personally reviewed this study, and has reviewed and/or edited this written report and agrees with it. Attending: CADEN MARTINEZ Requesting: Tamara Ashraf Requesting Fax: Attending Fax: Attending ID: [id number] Requesting ID: [id number] Report To 1 ID: [id number] Report To 1 Name: , Report To 1 FAX: NextGen Order #: Procedure Note Miscellaneous, Not In File / Provider, MD Sofia - 01/28/2017 Jose CONNORS M.D. FINAL REPORT The radiology attending physician has personally reviewed this study, and has reviewed and/or edited this written report and agrees with it. ACC# Date Time Exam [id number] Jan 27, 2017 13:24:[id number] Abd and Pelvis wo cont EXAMINATION: [...] ORTIZ M.D. on Jan 27 2017 1:45P [id number] BERRY M.D. FINAL REPORT The radiology attending physician has personally reviewed this study, and has reviewed and/or edited this written report and agrees with it. Attending: CADEN MARTINEZ Requesting: Tamara Ashraf Requesting Fax: Attending Fax: Attending ID: [id number] Requesting ID: [id number] Report To 1 ID: [id number] Report To 1 Name: , Report To 1 FAX: NextGen Order #: Tamara Ashraf MD IMG CT PROCEDURES Edited Result - Final * COLONOSCOPY REPORT (11/16/2014) Anatomical Region Laterality Modality Other Narrative 11/16/2014 Ordered by an unspecified provider. Historical Provider GI PROCEDURE ORDERABLES F inal Result from Last 3 Months or Most Recently Relevant to Health Maintenance Insurance MEDICARE [facility] [place] [place] [id number] MEDICARE [facility] [place] [address] [employer] CLAIMS OFFICE MEDICARE [facility] [place] [id number] Advance Directives For more information, please contact: [phone] Documents on File Type Date Recorded Patient Crusher Setter Expl anation ADVANCE DIRECTIVE 11/14/2021 7:21 AM Power of Foil Cutter-Medical ADVANCE DIRECTIVE 08/26/2017 12:00 AM * Full Code (Latest Code Status on File) Date Activated Date Inactivated Comments 12/11/2021 1:33 PM 12/13/2021 3:52 PM * Full Code Date Activated Date Inactivated Comments 04/07/2019 8:21 AM 04/07/2019 1:49 PM Care Teams Staffing Recruiter Relationship Specialty Start Date End Date Celia Mayberry MD [address] [facility] [address] [facility] [address] [place] [address] PCP - General 08/06/16 Dale Figueroa RN [address] [address] Registered Nurse Orthopedic Cast Specialist 11/19/17 Jarrod Ramirez MD [address] [facility] [address] [place] [address] Referring Physician Transplant Hepatology 01/01/18 Leena Alfaro, RN Orthopedic Cast Specialist Transplant 05/07/19 José Manuel Antoine MD [address] [facility] [address] [place] [address] Medical Oncologist/Hematologis t Medical Oncology 11/06/21 Isreal Morgan MD [address] [facility] [address] [place] [address] Consulting Physician Otolaryngology 11/06/21 Temo Shepard MD [address] [facility] [address] [place] [address] Radiation Oncologist Radiation Oncology 11/06/21
--- OUTSIDE RECORDS SUMMARY | 2024-09-13 20:41 | XMS_ITS ---
Author Organization [facility] al Address [address] [place] [address] Care Team Providers Care Dope Pourer Name Role Phone Celia Mayberry MD Primary Care Provider Dale Figueroa RN Unavailable Jarrod Ramirez MD Unavailable [phone] Leena Alfaro RN Unavailable [phone] José Manuel Antoine MD Unavailable [phone] Isreal Morgan MD Unavailable [phone] Temo Shepard MD Unavailable [phone] Transplant Episode Liver Recipient [facility] ([place], [place]) - [facility] Organ Received: Liver Transplanted on 01/04/2015 Marked as Active Follow-up on 01/04/2015 Liver CoordinatorLeena Alfaro RN Fax: N/A Email: N/A [place] Organ Diagnosis Organ Primary Contributory Liver Primary [...] Fax Email Leena Alfaro, ROSHNI Liver Coordinator [phone] N/A N/A Odessa Walters RN Secondary Coordinator Secondary Liver Coordinator [phone] N/A N/A Leena Alfaro, before school babysitterElectric Power Superintendent [phone] N/A N/A Delma Chaudhry Hand Cooper Helper [phone] N/A N/A Marci Maldonado Hand Cooper Helper [phone] N/A N/A Lucy Carreno Primary Advertising Representative N/A N/A N/A Meaghan Carrera before school babysitterElectric Power Superintendent [phone] N/A N/A Events Post-Transplant Pre-Transplant Admitted: 01/04/2015 Referred: 04/06/2013 Transplanted: 01/04/2015 Evaluation began: 3 Discharged: 01/13/2015 Center waitlisted: 5 Dialysis History Dialysis History Start End Type Comments Center 09/16/2017 [address] [facility] Dialysis Center Information Center Phone Fax Address [facility] [phone] [address] [facility] [address]
--- OUTSIDE RECORDS SUMMARY | 2024-09-13 20:41 | XMS_ITS | Encounter Summary ---
Author Organization [facility] Address [address] [place] [address] Phone Care Team Providers Care Boat Hop Name Role Phone Celia Mayberry MD Primary Care Provider Samantha Alberto RN Unavailable [phone] Meaghan Carrera RN Unavailable [phone] Dale Figueroa RN Unavailable Jarrod Ramirez MD Unavailable Leena Alfaro RN Unavailable [phone] José Manuel Antoine MD Unavailable Isreal Morgan MD Unavailable [phone] Temo Shepard MD Unavailable [phone] Encounter Details Date Type Department Care Team (Latest Contact Info) Description 10/29/2016 Orders Only [facility] CONVERSION Scanning, Provider Social History Tobacco Use Types Packs/Day Years Used Date Smoking Tobacco: Never Assessed Sex and Gender Information Value Date Recorded Sex Assigned at Not on file 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 Kacie Washburn RN generated from [facility] 09/08/2014 09/08/2014 12/11/2021 4:26 PM C DT documented as of this encounter Care Teams Boat Hop Relationship Specialty Start Date End Date Celia Mayberry MD [address] [place] [id number] PCP - General 08/06/16 Samantha Alberto RN [address] [address] Choir Accompanist 09/16/17 Meaghan Carrera RN [address] [address] Choir Accompanist 09/22/17 Dale Figueroa RN [address] [address] Registered Nurse Choir Accompanist 11/19/17 Jarrod Ramirez MD [address] [address] Referring Physician Transplant Hepatology 01/01/18 Leena Alfaro, ROSHNI Choir Accompanist Transplant 05/07/19 José Manuel Anotine MD [address] [facility] [address] [place] [address] Medical Oncologist/Hematologis t Medical Oncology 11/06/21 Isreal Morgan MD [address] [facility] [address] [place] [address] Consulting Physician Otolaryngology 11/06/21 Temo Shepard MD [address] [facility] [address] [place] [address] Radiation Oncologist Radiation Oncology 11/06/21 documented as of this encounter
--- OUTSIDE RECORDS SUMMARY | 2024-09-13 20:41 | XMS_ITS ---
Author Organization [facility] al Address 1 [place] [address] Care Team Providers Care Inspector Metal Can Name Role Phone Celia Mayberry MD Primary Care Provider Dale Figueroa RN Unavailable Jarrod Ramirez MD Unavailable [phone] Leena Alfaro RN Unavailable [phone] José Manuel Antoine MD Unavailable [phone] Isreal Morgan MD Unavailable [phone] Temo Shepard MD Unavailable [phone] Transplant Episode Kidney Recipient [facility] ([place], [place]) [facility] Organ Received: Right Kidney Transplanted on 08/18/2017 Marked as Active Follow-up on 08/18/2017 Kidney CoordinatorDale Figueroa RN Fax: N/A Email: N/A [place] Organ Diagnosis Organ Primary Contributory Kidney Diabetes [...] Fax Email Dale Figueroa, RN Kidney Coordinator [phone] N/A N/A Yina Huitron Primary Property Custodian N/A N/A N/A Dale Figueroa, pottery decoration designerRetail Service Lead Merchandiser [phone] N/A N/A Neelam Blair, ROSHNI Secondary Coordinator Secondary Kidney Coordinator [phone] N/A N/A Delma Chaudhry Southeast Regional Sales Manager [phone] N/A N/A Marci Maldonado Southeast Regional Sales Manager [phone] N/A N/A Events Post-Transplant Pre-Transplant Admitted: 08/18/2017 Referred: 10/10/2016 Transplanted: 08/18/2017 Evaluation began: 7 Discharged: 08/22/2017 Center waitlisted: 8 Appointments (08/14/2024 - 10/14/2024) When With Visit Type Description 09/03/2024 Transplant - [facility] Telemedicine Appoin tment Kidney replaced by transplant (Primary Dx); Encounter for aftercare following kidney transplant; Encounter for long-term (current) use of high-risk medication; Hypertension, unspecified type Dialysis History Dialysis History Start End Type Comments Center 09/16/2017 Hem[facility] Dialysis Center Information Center Phone Fax Address [facility] [phone] [address] [facility] [address]
--- OUTSIDE RECORDS SUMMARY | 2024-09-13 20:41 | XMS_ITS | Encounter Summary ---
Author Organization [facility] Address [address] [place] [address] Phone Care Team Providers Care Superintendent Landfill Operations Name Role Phone Celia Mayberry MD Primary Care Provider Samantha Alberto RN Unavailable [phone] Meaghan Carrera RN Unavailable Dale Figueroa RN Unavailable Jarrod Ramirez MD Unavailable [phone] Leena Alfaro RN Unavailable [phone] José Manuel Antoine MD Unavailable [phone] Isreal Morgan MD Unavailable [phone] Temo Shepard MD Unavailable [phone] Encounter Details Date Type Department Care Team (Latest Contact Info) Description 12/08/2016 Orders Only [facility] CONVERSION Scanning, Provider Social History Tobacco Use Types Packs/Day Years Used Date Smoking Tobacco: Never Assessed Sex and Gender Information Value Date Recorded Sex Assigned at Not on file 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 Kacie Washburn RN generated from [place] 09/08/2014 09/08/2014 12/11/2021 4:26 PM C DT documented as of this encounter Care Teams Superintendent Landfill Operations Relationship Specialty Start Date End Date Celia Mayberry MD [address] [place] [id number] PCP - General 08/06/16 Samantha Alberto RN [address] [address] Nutrition Tech 09/16/17 Meaghan Carrera RN [address] [address] Nutrition Tech 09/22/17 Dale Figueroa RN [address] [address] Registered Nurse Nutrition Tech 11/19/17 Jarrod Ramirez MD [address] [address] Referring Physician Transplant Hepatology 01/01/18 Leena Alfaro, ROSHNI Nutrition Tech Transplant 05/07/19 José Manuel Antoine MD [address] [facility] [address] [place] [address] Medical Oncologist/Hematologis t Medical Oncology 11/06/21 Isreal Morgan MD [address] [facility] [address] [place] [address] Consulting Physician Otolaryngology 11/06/21 Temo Shepard MD [address] [facility] [address] [place] [address] Radiation Oncologist Radiation Oncology 11/06/21 documented as of this encounter
--- OUTSIDE RECORDS SUMMARY | 2024-09-13 20:41 | XMS_ITS ---
Author Organization [facility] al Address [address] [place] [address] Care Team Providers Care Financial Assistant Name Role Phone Celia Mayberry MD Primary Care Provider Dale Figueroa RN Unavailable Jarrod Ramirez MD Unavailable [phone] Leena Alfaro RN Unavailable José Manuel Antoine MD Unavailable [phone] Isreal Morgan MD Unavailable [phone] Temo Shepard MD Unavailable Active Problems Patient Care Coordination No te Formatting of this note migh t be different from the original. Lab Name: [facility] Phone: Timeframe orders are good [...] (11/06/2021): Added automatically from request for surgery [id number] Encounter for long-term (cur rent) use of [...] acceptable. Assessment & Plan (05/10/2020 5:58 PM LINE TENDER): He has stable allograft function with normal [...] follows with Dr. Ramirez in Hepatology at [facility]. Currently, not on any treatment at [...]
--- OUTSIDE RECORDS SUMMARY | 2024-09-13 20:41 | XMS_ITS | Referral Summary ---
Author Organization [facility] Address [address] [place] [address] Care Team Providers Care Management Professionals Name Role Phone Celia Mayberry MD Primary Care Provider Dale Figueroa RN Unavailable Jarrod Ramirez MD Unavailable [phone] Leena Alfaro RN Unavailable José Manuel Antoine MD Unavailable [phone] Isreal Morgan MD Unavailable [phone] Temo Shepard MD Unavailable [phone] Encounters Date Type Department Care Team Description 09/10/2024 8:33 AM CDT - 09/10/2024 11:24 AM CDT Emergency [facility] Emergency Department [address] [place] [address] Shakir Sumner MD Acute bilateral thoracic back pain (Primary Dx) Discharge Disposition: Discharge to home or self care 09/03/2024 9:00 AM CDT Telemedicine [facility] Nephrology [address] 5[address] [place] [address] Senait Cloud NP Kidney replaced by transplant (Primary Dx); Encounter for aftercare following kidney transplant; Encounter for long-term (current) use of high-risk medication; Hypertension, unspecified type 08/31/2024 Lab [facility] and [facility] Transplant Kidney [address] Mailstop [phone] [place] [address] Tamara Ashraf MD 08/27/2024 Lab [facility] and [facility] Transplant Kidney [address] Mailstop [phone] [place] [address] Tamara Ashraf MD 08/27/2024 Telephone [facility] and [facility] Transplant Kidney [address] [phone] [place] [address] Alexia Urias from Last 3 Months Allergies Active Allergy Reactions Criticality Noted Date Comments No Known Allergies Other (See comments) Low Reaction: Medications levothyroxine (SYNTHROID, LEVOTHROID) 88 mcg tabletIndicatio ns:hypothyroidi sm Take 1 tablet (88 mcg total) by mouth cart driver before breakfast 8 Active BD ULTRA-FINE SHORT [...] be different from the original. Lab Name: [facility] Phone: Timeframe orders are good [...] (11/06/2021): Added automatically from request for surgery [id number] Encounter for long-term (cur rent) use of [...] acceptable. Assessment & Plan (05/10/2020 5:58 PM COMMUNITY SERVICE ORGANIZATION DIRECTOR): He has stable allograft function with normal [...] follows with Dr. Ramirez in Hepatology at [facility]. 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 [place] [address] * Tacrolimus level trough (08/27/2024) SCRIBED Tacrolimus, trough 11 5 - 20 TXP NO LAB FOUND Blood 08/27/2024 Result [facility] Historical Provider LAB BLOOD ORDERABLES Edit ed Result - Final Performing Organization Address [facility] de Phone Number TXP NO LAB FOUND [...] ed Result - Final Performing Organization Address [facility] [[email or web address]] Co de Phone Number TXP NO LAB FOUND * Phosphorus (08/27/2024) SCRIBED Phosphorus 3.2 2.5 - 4.5 mg/dl TXP NO LAB FOUND Blood 08/27/2024 Result [facility] Historical Provider LAB BLOOD ORDERABLES Terra l Result Performing Organization Address [facility] [[email or web address]] Co de Phone Number TXP NO LAB FOUND * (ABNORMAL) Hemoglobin A1c (08/27/2024) SCRIBED Hemoglobin A1c 6.5(A) 4.0 - 6.0 % TXP NO LAB FOUND Blood 08/27/2024 Result [facility] Provider LAB BLOOD ORDERABLES Terra l Result Performing Organization Address City/[facility]/ZIP Co de Phone Number TXP NO LAB FOUND * Gamma GT (08/27/2024) SCRIBED GGT 16 12 - 58 TXP NO L AB FOUND Blood 08/27/2024 Result [facility] Provider LAB BLOOD ORDERABLES Terra l Result Performing Organization Address [facility] [[email or web address]] Co de Phone Number TXP NO LAB [...] TXP NO LAB FOUND Blood 08/27/2024 Result [facility] Provider LAB BLOOD ORDERABLES Terra l Result Performing Organization Address [facility] [[email or web address]] Co de Phone Number TXP NO LAB [...] NO LAB FOUND SCRIBED eGFR in NonAfrican Portuguese 45 >60 TXP NO LAB FOUND Blood 08/27/2024 Result [facility] Historical Provider LAB BLOOD ORDERABLES Terra l Result Performing Organization Address [facility] [[email or web address]] Co de Phone Number TXP NO LAB FOUND * TSH (10/19/2020) Scribed TSH 0.58 0.47 - 4.68 mcU/mL TXP NO LAB FOUND Blood specimen (specimen) 10/19/2020 Result [facility] Historical Provider LAB BLOOD ORDERABLES Terra l Result Performing Organization Address [facility] [[email or web address]] Co de Phone Number TXP NO LAB FOUND * Hepatitis C (HCV) RNA PCR, quantitative (02/19/2019) SCRIBED HCV RNA Nt. Det. 0 - <1.18 IUnit/mL TXP NO LAB FOUND Blood specimen (specimen) 02/19/2019 Result [facility] Historical Provider LAB MICROBIOLOGY - GENERA L ORDERABLES Final Result Performing Organization Address [facility] [[email or web address]] Co de Phone Number TXP NO LAB [...] agrees with it. ACC# Date Time Exam [id number] Jan 27, 2017 13:24:[id number] Abd and Pelvis wo cont EXAMINATION: [...] likely sequela of aspiration. Electronically signed by: Vinicoi Barroso M.D. Requested By: Tamara Ashraf M.D. Dictated By: ERIK CELAYA M.D. on Jan 27 2017 1:45P This document has been electronically signed by: VINICIO ORTIZ M.D. on Jan 27 2017 1:45P [id number] CONNORS M.D. FINAL REPORT The radiology attending physician has personally reviewed this study, and has reviewed and/or edited this written report and agrees with it. Attending: CADEN MARTINEZ Requesting: Tamara Ashraf Requesting Fax: Attending Fax: Attending ID: [id number] Requesting ID: [id number] Report To 1 ID: [id number] Report To 1 Name: , Report To 1 FAX: NextGen Order #: Procedure Note Miscellaneous, Not In File / Provider, MD Sofia - 01/28/2017 Jose CONNORS M.D. FINAL REPORT The radiology attending physician has personally reviewed this study, and has reviewed and/or edited this written report and agrees with it. [facility]# Date Time Exam [id number] Jan 27, 2017 13:24:[id number] Abd and Pelvis wo cont EXAMINATION: [...] ORTIZ M.D. on Jan 27 2017 1:45P [id number] CONNORS M.D. FINAL REPORT The radiology attending physician has personally reviewed this study, and has reviewed and/or edited this written report and agrees with it. Attending: CADEN MARTINEZ Requesting: Tamara Ashraf Requesting Fax: Attending Fax: Attending ID: [id number] Requesting ID: [id number] Report To 1 ID: [id number] Report To 1 Name: , Report To 1 FAX: NextGen Order #: Tamara Ashraf MD IMG CT PROCEDURES Edited Result - Final * COLONOSCOPY REPORT (11/16/2014) Anatomical Region Laterality Modality Other Narrative 11/16/2014 Ordered by an unspecified provider. Historical Provider GI PROCEDURE ORDERABLES F inal Result from Last 3 Months or Most Recently Relevant to Health Maintenance Insurance MEDICARE [employer] MEDIC[place] [address] [employer] CLAIMS OFFICE [place]IC[place] [id number] Advance Directives For more information, please contact: [phone] Documents on File Type Date Recorded Patient Wind Project Manager Expl anation ADVANCE DIRECTIVE 11/14/2021 7:21 AM Power of Front Office Manager-Medical ADVANCE DIRECTIVE 08/26/2017 12:00 AM * Full Code (Latest Code Status on File) Date Activated Date Inactivated Comments 12/11/2021 1:33 PM 12/13/2021 3:52 PM * Full Code Date Activated Date Inactivated Comments 04/07/2019 8:21 AM 04/07/2019 1:49 PM Care Teams Management Professionals Relationship Specialty Start Date End Date Celia Mayberry MD [address] [place] [address] PCP - General 08/06/16 Dale Figueroa, RN [address] [facility] [address] [place] [address] Registered Nurse Ob Nurse 11/19/17 Jarrod Ramirez MD [address] [facility] [address] [place] [address] Referring Physician Transplant Hepatology 01/01/18 Leena Alfaro RN Ob Nurse Transplant 05/07/19 José Manuel Antoine MD [address] [facility] [address] [place] [address] Medical Oncologist/Hematologis t Medical Oncology 11/06/21 Isreal Morgan MD [address] [facility] [address] [place] [address] Consulting Physician Otolaryngology 11/06/21 Temo Shepard MD [address] [facility] [address] [place] [address] Radiation Oncologist Radiation Oncology 11/06/21
--- OUTSIDE RECORDS SUMMARY | 2024-09-13 21:03 | XMS_ITS ---
Author Organization [facility] al Address [address] [place] [address] Care Team Providers Care Loom Starter Name Role Phone Celia Mayberry MD Primary Care Provider Dale Figueroa RN Unavailable Jarrod Ramirez MD Unavailable [phone] Leena Alfaro RN Unavailable [phone] José Manuel Antoine MD Unavailable [phone] Isreal Morgan MD Unavailable [phone] Temo Shepard MD Unavailable [phone] Transplant Episode Liver Recipient [facility] ([place], [place]) - [facility] Organ Received: Liver Transplanted on 01/04/2015 Marked as Active Follow-up on 01/04/2015 Liver CoordinatorLeena Alfaro RN Fax: N/A Email: N/A [place] Organ Diagnosis Organ Primary Contributory Liver Primary [...] Fax Email Leena Alfaro, ROSHNI Liver Coordinator [phone] N/A N/A Odessa Walters RN Secondary Coordinator Secondary Liver Coordinator [phone] N/A N/A Leena Alfaro, projection engineerTube Drawing Supervisor [phone] N/A N/A Delma Chaudhry Corporate Learning Consultant [phone] N/A N/A Marci Maldonado Corporate Learning Consultant [phone] N/A N/A Lucy Carreno Primary C Web Developer N/A N/A N/A Meaghan Carrera projection engineerTube Drawing Supervisor [phone] N/A N/A Events Post-Transplant Pre-Transplant Admitted: 01/04/2015 Referred: 04/06/2013 Transplanted: 01/04/2015 Evaluation began: 3 Discharged: 01/13/2015 Center waitlisted: 5 Dialysis History Dialysis History Start End Type Comments Center 09/16/2017 Brenna ALEJANDRA [facility] Dialysis Center Information Center Phone Fax Address [facility] [phone] [facility] [address]
--- OUTSIDE RECORDS SUMMARY | 2024-09-13 21:03 | XMS_ITS ---
Author Organization [facility] al Address [address] [place] [address] Care Team Providers Care Pit Clerk Name Role Phone Celia Mayberry MD Primary Care Provider Dale Figueroa RN Unavailable Jarrod Ramirez MD Unavailable [phone] Leena Alfaro RN Unavailable [phone] José Manuel Antoine MD Unavailable [phone] Isreal Morgan MD Unavailable [phone] Temo Shepard MD Unavailable [phone] Transplant Episode Kidney Recipient [facility] ([place], [place]) [facility] Organ Received: Right Kidney Transplanted on 08/18/2017 Marked as Active Follow-up on 08/18/2017 Kidney CoordinatorDale Figueroa RN Fax: N/A Email: N/A [place] Organ Diagnosis Organ Primary Contributory Kidney Diabetes [...] Fax Email Dale Figueroa, RN Kidney Coordinator [phone] N/A N/A Yina Huitron Primary Epic Manager N/A N/A N/A Dale Figueroa, scowmanMaintenance Service Technician [phone] N/A N/A Neelam Blair, ROSHNI Secondary Coordinator Secondary Kidney Coordinator [phone] N/A N/A Delma Chaudhry Agency Owner [phone] N/A N/A Marci Maldonado Agency Owner [phone] N/A N/A Events Post-Transplant Pre-Transplant Admitted: 08/18/2017 [...] Type Comments Center 09/16/2017 Hemo [facility] Dialysis Center Information Center Phone Fax Address [facility] [phone] [facility] [address]
--- OUTSIDE RECORDS SUMMARY | 2024-09-13 21:03 | XMS_ITS | Encounter Summary ---
Author Organization [facility] Address [address] [place] [address] Care Team Providers Care Used Car Renovator Name Role Phone Celia Mayberry MD Primary Care Provider Samantha Alberto RN Unavailable [phone] Dale Figueroa RN Unavailable Jarrod Ramirez MD Unavailable Leena Alfaro RN Unavailable [phone] José Manuel Antoine MD Unavailable [phone] Isreal Morgan MD Unavailable Temo Shepard MD Unavailable [phone] Encounter Details Date Type Department Care Team (Late st Contact Info) Description 01/27/2019 Orders Only [facility] Health Information Management [address] [place] [address] Scanning, Provider Social History Tobacco Use Types Packs/Day Years Used Date Smoking Tobacco: Former Cigarettes Q uit: 2010 Smokeless Tobacco: Never Alcohol Use Standard Drinks/Week Comments Not Currently 0 (1 standard drink = 0.6 oz pur e alcohol) Sex and Gender Information Value Date Recorded Sex Assigned at Not on file 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 Gender Identity Not on file Sexual Orientation [...] documented as of this encounter Care Teams Used Car Renovator Relationship Specialty Start Date End Date Celia Mayberry MD [address] [place] [address] PCP - General 08/06/16 Samantha Alberto RN [address] [facility] [address] [place] [address] Carbon Brusher Assembler 09/16/17 Dale Figueroa RN [address] [facility] [address] [place] [address] Registered Nurse Carbon Brusher Assembler 11/19/17 Jarrod Ramirez MD [address] [facility] [address] [place] [address] Referring Physician Transplant Hepatology 01/01/18 Leena Alfaro, RN Carbon Brusher Assembler Transplant 05/07/19 José Manuel Antoine MD [address] [facility] [address] [place] [address] Medical Oncologist/Hematologis t Medical Oncology 11/06/21 Isreal Morgan MD [address] [facility] [address] [place], [place] [address] Consulting Physician Otolaryngology 11/06/21 Temo Shepard MD [address] [facility] [address] [place], [place] [address] Radiation Oncologist Radiation Oncology 11/06/21 documented as of this encounter
--- OUTSIDE RECORDS SUMMARY | 2024-09-13 21:03 | XMS_ITS | Encounter Summary ---
Author Organization [facility] [employer] [facility] Address [address] [place] [address] Phone Care Team Providers Care Agricultural Research Technician Name Role Phone Celia Mayberry MD Primary Care Provider Samantha Alberto RN Unavailable [phone] Meaghan Carrera RN Unavailable Dale Figueroa RN Unavailable Jarrod Ramirez MD Unavailable [phone] Leena lAfaro RN Unavailable [phone] José Manuel Antoine MD Unavailable Isreal oMrgan MD Unavailable [phone] Temo Shepard MD Unavailable [phone] Encounter Details Date Type Department Care Team (Latest Contact Info) Description 12/08/2016 Orders Only [facility] Scanning, Provider Social History Tobacco Use Types Packs/Day Years Used Date Smoking Tobacco: Never Assessed Sex and Gender Information Value Date Recorded Sex Assigned at Not on file 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 Kacie Washburn RN generated from [facility] 09/08/2014 09/08/2014 12/11/2021 4:26 PM C DT documented as of this encounter Care Teams Agricultural Research Technician Relationship Specialty Start Date End Date Celia Mayberry MD [address] [place] [id number] PCP - General 08/06/16 Samantha Alberto RN [address] [address] Car Rider 09/16/17 Meaghan Carrera RN [address] [address] Car Rider 09/22/17 Dale Figueroa RN [address] [address] Registered Nurse Car Rider 11/19/17 Jarrod Ramirez MD [address] [address] Referring Physician Transplant Hepatology 01/01/18 Leena Alfaro, ROSHNI Car Rider Transplant 05/07/19 José Manuel Antoine MD [address] [facility] [address] [place] [address] Medical Oncologist/Hematologis t Medical Oncology 11/06/21 Isreal Morgan MD [address] [facility] [address] [place] [address] Consulting Physician Otolaryngology 11/06/21 Temo Shepard MD [address] [facility] [address] [place] [address] Radiation Oncologist Radiation Oncology 11/06/21 documented as of this encounter
--- OUTSIDE RECORDS SUMMARY | 2024-09-13 21:03 | XMS_ITS ---
Author Organization [facility] al Address [address] [place] [address] Care Team Providers Care Human Resources District Manager Name Role Phone Celia Mayberry MD Primary Care Provider Dale Figueroa RN Unavailable Jarrod Ramirez MD Unavailable [phone] Leena Alfaro RN Unavailable José Manuel Antoine MD Unavailable [phone] Isreal Morgan MD Unavailable [phone] Temo Shepard MD Unavailable Active Problems Patient Care Coordination No te Formatting of this note migh t be different from the original. Lab Name: [facility] Phone: Timeframe orders are good [...] (11/06/2021): Added automatically from request for surgery [id number] Encounter for long-term (cur rent) use of [...] acceptable. Assessment & Plan (05/10/2020 5:58 PM SALES OFFICE COORDINATOR): He has stable allograft function with normal [...] follows with Dr. Ramirez in Hepatology at [facility]. Currently, not on any treatment at [...]
--- OUTSIDE RECORDS SUMMARY | 2024-09-13 21:03 | XMS_ITS | Clinical Summary ---
Author Organization [facility] Address [address] [place] [address] Care Team Providers Care Firer Retort Name Role Phone Celia Mayberry MD Primary Care Provider Dale Figueroa RN Unavailable Jarrod Ramirez MD Unavailable Leena Alfaro RN Unavailable José Manuel Antoine MD Unavailable [phone] Isreal Morgan MD Unavailable [phone] Temo Shepard MD Unavailable [phone] Allergies Active Allergy Reactions Criticality Noted Date Comments No Known Allergies Other (See comments) Low Reaction: Medications levothyroxine (SYNTHROID, LEVOTHROID) 88 mcg tabletIndicatio ns:hypothyroidi sm Take 1 tablet (88 mcg total) by mouth supervisor prep before breakfast 8 Active BD ULTRA-FINE SHORT [...] be different from the original. Lab Name: [facility] Phone: Timeframe orders are good [...] (11/06/2021): Added automatically from request for surgery [id number] Encounter for long-term (cur rent) use of [...] acceptable. 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 Ramirez in [facility]. Currently, not on any treatment at [...] CDT - 09/10/2024 11:24 AM CDT Emergency [facility] Emergency Department [address] [place] [address] Shakir Sumner MD Acute bilateral thoracic back pain (Primary Dx) Discharge Disposition: Discharge to home or self care 09/03/2024 9:00 AM CDT Telemedicine [facility] Nephrology [address] [facility] 5th [place] [address] [place] [address] Senait Cloud NP Kidney replaced by transplant (Primary Dx); Encounter for aftercare following kidney transplant; Encounter for long-term (current) use of high-risk medication; Hypertension, unspecified type 08/31/2024 Lab [facility] Transplant Kidney [address] [facility] [address] Mailstop [phone] [place] [address] Tamara Ashraf MD 08/27/2024 Lab [facility] Transplant Kidney [address] [facility] [address] Mailstop [phone] [place] [address] Tamara Ashraf MD 08/27/2024 Telephone [facility] Transplant Kidney [address] Mailstop 20-08-637 [place] [address] Alexia Urias from Last 3 Months Immunizations [...] on file 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 Gender Identity Not on file Sexual Orientation [...] DEVICE F inal Result REYNALDO JASSO [facility] Department [place] [address] * Tacrolimus level trough (08/27/2024) SCRIBED Tacrolimus, trough 11 5 - 20 TXP NO LAB FOUND Blood 08/27/2024 Result [facility] Provider MD LAB BLOOD ORDERABLES Edit ed Result - Final Performing Organization Address [facility] de Phone Number TXP NO LAB FOUND * (ABNORMAL) CBC with auto differential (08/27/2024) SCRIBED WBC 5.8 4.2 - 10.8 k/cumm TXP NO LAB FOUND SCRIBED Hemoglobin 14.2 13.2 - 17 g/dL TXP NO LAB FOUND SCRIBED Hematocrit 43.9 39.3 - 50 % TXP NO LAB FOUND SCRIBED Platelets 116(A) 150 - 400 k/cumm TXP NO LAB FOUND Blood 08/27/2024 Result [facility] Provider MD LAB BLOOD ORDERABLES Edit ed Result - Final Performing Organization Address [facility] de Phone Number TXP NO LAB FOUND * Phosphorus (08/27/2024) SCRIBED Phosphorus 3.2 2.5 - 4.5 mg/dl TXP NO LAB FOUND Blood 08/27/2024 Result [facility] Provider MD LAB BLOOD ORDERABLES Terra l Result Performing Organization Address [facility] de Phone Number TXP NO LAB FOUND * (ABNORMAL) Hemoglobin A1c (08/27/2024) SCRIBED Hemoglobin A1c 6.5(A) 4.0 - 6.0 % TXP NO LAB FOUND Blood 08/27/2024 Result [facility] Provider MD LAB BLOOD ORDERABLES Terra l Result Performing Organization Address [facility] de Phone Number TXP NO LAB FOUND * Gamma GT (08/27/2024) SCRIBED GGT 16 12 - 58 TXP NO L AB FOUND Blood 08/27/2024 [facility] Provider MD LAB BLOOD ORDERABLES Terra l Result Performing Organization Address [facility] Co de Phone Number TXP [...] NONE TXP NO LAB FOUND Blood 08/27/2024 [facility] Provider MD LAB BLOOD ORDERABLES Terra l Result Performing Organization Address [facility] de Phone Number TXP NO [...] NO LAB FOUND SCRIBED eGFR in NonAfrican [place] Citizen 45 >60 TXP NO LAB FOUND Blood 08/27/2024 Result [facility] Provider LAB BLOOD ORDERABLES Terra l Result Performing Organization Address [facility] de Phone Number TXP NO LAB FOUND * TSH (10/19/2020) Scribed TSH 0.58 0.47 - 4.68 mcU/mL TXP NO LAB FOUND Blood specimen (specimen) 10/19/2020 Result [facility] Provider LAB BLOOD ORDERABLES Terra l Result Performing Organization Address [facility] de Phone Number TXP NO LAB FOUND * Hepatitis C (HCV) RNA PCR, quantitative (02/19/2019) SCRIBED HCV RNA Nt. Det. 0 - <1.18 IUnit/mL TXP NO LAB FOUND Blood specimen (specimen) 02/19/2019 Result [facility] Provider LAB MICROBIOLOGY - GENERA L ORDERABLES Final Result Performing Organization Address [facility] de Phone Number TXP NO LAB [...] agrees with it. ACC# Date Time Exam [id number] Jan 27, 2017 13:24:[id number] Abd and Pelvis wo cont EXAMINATION: [...] ORTIZ M.D. on Jan 27 2017 1:45P [id number] CONNORS M.D. FINAL REPORT The radiology attending physician has personally reviewed this study, and has reviewed and/or edited this written report and agrees with it. Attending: CADEN MARTINEZ Requesting: Tamara Ashraf Requesting Fax: Attending Fax: Attending ID: [id number] Requesting ID: [id number] Report To 1 ID: [id number] Report To 1 Name: , Report To 1 FAX: NextGen Order #: Procedure Note Miscellaneous, Not In File / Provider, MD Sofia - 01/28/2017 Jose CONNORS M.D. FINAL REPORT The radiology attending physician has personally reviewed this study, and has reviewed and/or edited this written report and agrees with it. ACC# Date Time Exam [id number] Jan 27, 2017 13:24:[id number] Abd and Pelvis wo cont EXAMINATION: [...] ORTIZ M.D. on Jan 27 2017 1:45P [id number] BERRY M.D. FINAL REPORT The radiology attending physician has personally reviewed this study, and has reviewed and/or edited this written report and agrees with it. Attending: CADEN MARTINEZ Requesting: Tamara Ashraf Requesting Fax: Attending Fax: Attending ID: [id number] Requesting ID: [id number] Report To 1 ID: [id number] Report To 1 Name: , Report To 1 FAX: NextGen Order #: Tamara Ashraf MD IMG CT PROCEDURES Edited Result - Final * COLONOSCOPY REPORT (11/16/2014) Anatomical Region Laterality Modality Other Narrative 11/16/2014 Ordered by an unspecified provider. Historical Provider GI PROCEDURE ORDERABLES F inal Result from Last 3 Months or Most Recently Relevant to Health Maintenance Insurance MEDICARE [facility] [place] [address] MEDICARE [facility] Address: [facility] [address] [place] [address] [facility] [place] [address] [place] [address] MEDICARE [facility] [place] [address] Advance Directives For more information, please contact: [phone] Documents on File Type Date Recorded Patient Burial Needs Salesperson Expl anation ADVANCE DIRECTIVE 11/14/2021 7:21 AM Power of Kiln Stacker-Medical ADVANCE DIRECTIVE 08/26/2017 12:00 AM * Full Code (Latest Code Status on File) Date Activated Date Inactivated Comments 12/11/2021 1:33 PM 12/13/2021 3:52 PM * Full Code Date Activated Date Inactivated Comments 04/07/2019 8:21 AM 04/07/2019 1:49 PM Care Teams Firer Retort Relationship Specialty Start Date End Date Celia Mayberry MD [address] [facility] [address] [facility] [address] [place] [address] PCP - General 08/06/16 Dale Figueroa RN [address] [address] Registered Nurse Environmental Services Manager 11/19/17 Jarrod Ramirez MD [address] [facility] [address] [place] [address] Referring Physician Transplant Hepatology 01/01/18 Leena Alfaro, RN Environmental Services Manager Transplant 05/07/19 José Manuel Antoine MD [address] [facility] [address] [place] [address] Medical Oncologist/Hematologis t Medical Oncology 11/06/21 Isreal Morgan MD [address] [facility] [address] [place] [address] Consulting Physician Otolaryngology 11/06/21 Temo Shepard MD [address] [facility] [address] [place] [address] Radiation Oncologist Radiation Oncology 11/06/21
--- OUTSIDE RECORDS SUMMARY | 2024-09-13 21:03 | XMS_ITS | Encounter Summary ---
Author Organization [facility] Address [address] [place] [address] Phone Care Team Providers Care Architectural Inspector Name Role Phone Celia Mayberry MD Primary Care Provider Samantha Alberto RN Unavailable [phone] Meaghan Carrera RN Unavailable Dale Figueroa RN Unavailable Jarrod Ramirez MD Unavailable Leena Alfaro RN Unavailable [phone] José Manuel Antoine MD Unavailable Isreal Morgan MD Unavailable [phone] Temo Shepard MD Unavailable [phone] Encounter Details Date Type Department Care Team (Latest Contact Info) Description 10/29/2016 Orders Only [facility] CONVERSION Scanning, Provider Social History Tobacco Use Types Packs/Day Years Used Date Smoking Tobacco: Never Assessed Sex and Gender Information Value Date Recorded Sex Assigned at Not on file 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 Kacie Washburn RN generated from [facility] 09/08/2014 09/08/2014 12/11/2021 4:26 PM C DT documented as of this encounter Care Teams Architectural Inspector Relationship Specialty Start Date End Date Celia Mayberry MD [address] [place] [id number] PCP - General 08/06/16 Samantha Alberto RN [address] [address] Caustics Loader 09/16/17 Meaghan Carrera RN [address] [address] Caustics Loader 09/22/17 Dale Figueroa RN [address] [address] Registered Nurse Caustics Loader 11/19/17 Jarrod Ramirez MD [address] [address] Referring Physician Transplant Hepatology 01/01/18 Leena Alfaro, ROSHNI Caustics Loader Transplant 05/07/19 José Manuel Antoine MD [address] [facility] [address] [place] [address] Medical Oncologist/Hematologis t Medical Oncology 11/06/21 Isreal Morgan MD [address] [facility] [address] [place] [address] Consulting Physician Otolaryngology 11/06/21 Temo Shepard MD [address] [facility] [address] [place] [address] Radiation Oncologist Radiation Oncology 11/06/21 documented as of this encounter
--- OUTSIDE RECORDS SUMMARY | 2024-09-13 21:03 | XMS_ITS | Referral Summary ---
Author Organization [facility] Address [address] [place] [address] Care Team Providers Care Courtroom Deputy Or Calendar Clerk Name Role Phone Celia Mayberry MD Primary Care Provider Dale Figueroa RN Unavailable Jarrod Ramirez MD Unavailable [phone] Leena Alfaro RN Unavailable José Manuel Antoine MD Unavailable [phone] Isreal Morgan MD Unavailable [phone] Temo Shepard MD Unavailable [phone] Encounters Date Type Department Care Team Description 09/10/2024 8:33 AM CDT - 09/10/2024 11:24 AM CDT Emergency [facility] Emergency Department [address] [place] [address] Shakir Sumner MD Acute bilateral thoracic back pain (Primary Dx) Discharge Disposition: Discharge to home or self care 09/03/2024 9:00 AM CDT Telemedicine [facility] Nephrology [address] [facility] 5th [place] [address] [place] [address] Senait Cloud NP Kidney replaced by transplant (Primary Dx); Encounter for aftercare following kidney transplant; Encounter for long-term (current) use of high-risk medication; Hypertension, unspecified type 08/31/2024 Lab [facility] and [facility] Transplant Kidney [address] [facility] [address] Mailstop [phone] [place] [address] Tamara Ashraf MD 08/27/2024 Lab [facility] and [facility] Transplant Kidney [address] [facility] [address] Mail[address] [phone] [place] [address] Tamara Ashraf MD 08/27/2024 Telephone [facility] and [facility] Transplant Kidney [address] [facility] [address] Mail[address] [phone] [place] [address] Alexia Urias from Last 3 Months Allergies Active Allergy Reactions Criticality Noted Date Comments No Known Allergies Other (See comments) Low Reaction: Medications levothyroxine (SYNTHROID, LEVOTHROID) 88 mcg tabletIndicatio ns:hypothyroidi sm Take 1 tablet (88 mcg total) by mouth computer game tester before breakfast 8 Active BD ULTRA-FINE SHORT [...] be different from the original. Lab Name: [facility] Phone: Timeframe orders are good [...] (11/06/2021): Added automatically from request for surgery [id number] Encounter for long-term (cur rent) use of [...] acceptable. 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 Ramirez in Hepatology at [facility]. 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 Gender Identity Not on file Sexual Orientation [...] DEVICE F inal Result Performing Organization Address [facility] de Phone Number [facility] One [facility] [place] [address] * Tacrolimus level trough (08/27/2024) SCRIBED Tacrolimus, trough 11 5 - 20 TXP NO LAB FOUND Blood 08/27/2024 Result [facility] Historical Provider LAB BLOOD ORDERABLES Edit ed Result - Final Performing Organization Address [facility] de Phone Number TXP NO LAB FOUND [...] ed Result - Final Performing Organization Address [facility] de Phone Number TXP NO LAB FOUND * Phosphorus (08/27/2024) SCRIBED Phosphorus 3.2 2.5 - 4.5 mg/dl TXP NO LAB FOUND Blood 08/27/2024 Result [facility] Historical Provider LAB BLOOD ORDERABLES Terra l Result Performing Organization Address [facility] de Phone Number TXP NO LAB FOUND * (ABNORMAL) Hemoglobin A1c (08/27/2024) SCRIBED Hemoglobin A1c 6.5(A) 4.0 - 6.0 % TXP NO LAB FOUND Blood 08/27/2024 Result [facility] Provider LAB BLOOD ORDERABLES Terra l Result Performing Organization Address City/[facility]/ZIP Co de Phone Number TXP NO LAB FOUND * Gamma GT (08/27/2024) SCRIBED GGT 16 12 - 58 TXP NO L AB FOUND Blood 08/27/2024 Result [facility] Provider LAB BLOOD ORDERABLES Terra l Result Performing Organization Address [facility] de Phone Number TXP NO LAB [...] TXP NO LAB FOUND Blood 08/27/2024 Result [facility] Provider LAB BLOOD ORDERABLES Terra l Result Performing Organization Address [facility] de Phone Number TXP NO LAB [...] NO LAB FOUND SCRIBED eGFR in NonAfrican Bahamian 45 >60 TXP NO LAB FOUND Blood 08/27/2024 Result [facility] Historical Provider LAB BLOOD ORDERABLES Terra l Result Performing Organization Address [facility] de Phone Number TXP NO LAB FOUND * TSH (10/19/2020) Scribed TSH 0.58 0.47 - 4.68 mcU/mL TXP NO LAB FOUND Blood specimen (specimen) 10/19/2020 Result [facility] Historical Provider LAB BLOOD ORDERABLES Terra l Result Performing Organization Address [facility] de Phone Number TXP NO LAB FOUND * Hepatitis C (HCV) RNA PCR, quantitative (02/19/2019) SCRIBED HCV RNA Nt. Det. 0 - <1.18 IUnit/mL TXP NO LAB FOUND Blood specimen (specimen) 02/19/2019 Result [facility] Historical Provider LAB MICROBIOLOGY - GENERA L ORDERABLES Final Result Performing Organization Address [facility] de Phone Number TXP NO LAB [...] agrees with it. ACC# Date Time Exam [id number] Jan 27, 2017 13:24:[id number] Abd and Pelvis wo cont EXAMINATION: [...] ORTIZ M.D. on Jan 27 2017 1:45P [id number] CONNORS M.D. FINAL REPORT The radiology attending physician has personally reviewed this study, and has reviewed and/or edited this written report and agrees with it. Attending: CADEN MARTINEZ Requesting: Tamara Ashraf Requesting Fax: Attending Fax: Attending ID: [id number] Requesting ID: [id number] Report To 1 ID: [id number] Report To 1 Name: , Report To 1 FAX: NextGen Order #: Procedure Note Miscellaneous, Not In File / Provider, MD Sofia - 01/28/2017 Jose CONNORS M.D. FINAL REPORT The radiology attending physician has personally reviewed this study, and has reviewed and/or edited this written report and agrees with it. [facility]# Date Time Exam [id number] Jan 27, 2017 13:24:[id number] Abd and Pelvis wo cont EXAMINATION: [...] ORTIZ M.D. on Jan 27 2017 1:45P [id number] CONNORS M.D. FINAL REPORT The radiology attending physician has personally reviewed this study, and has reviewed and/or edited this written report and agrees with it. Attending: CADEN MARTINEZ Requesting: Tamara Ashraf Requesting Fax: Attending Fax: Attending ID: [id number] Requesting ID: [id number] Report To 1 ID: [id number] Report To 1 Name: , Report To 1 FAX: NextGen Order #: Tamara Ashraf MD IMG CT PROCEDURES Edited Result - Final * COLONOSCOPY REPORT (11/16/2014) Anatomical Region Laterality Modality Other Narrative 11/16/2014 Ordered by an unspecified provider. Historical Provider GI PROCEDURE ORDERABLES F inal Result from Last 3 Months or Most Recently Relevant to Health Maintenance Insurance MEDICARE [employer] MEDIC[employer] [place] [address] [employer] CLAIMS OFFICE MEDICARE [place] [address] Advance Directives For more information, please contact: [phone] Documents on File Type Date Recorded Patient Orthopedic Brace Maker Expl anation ADVANCE DIRECTIVE 11/14/2021 7:21 AM Power of Hematology Nurse-Medical ADVANCE DIRECTIVE 08/26/2017 12:00 AM * Full Code (Latest Code Status on File) Date Activated Date Inactivated Comments 12/11/2021 1:33 PM 12/13/2021 3:52 PM * Full Code Date Activated Date Inactivated Comments 04/07/2019 8:21 AM 04/07/2019 1:49 PM Care Teams Courtroom Deputy Or Calendar Clerk Relationship Specialty Start Date End Date Celia Mayberry MD [address] [place] [address] PCP - General 08/06/16 Dale Figueroa, RN [address] [facility] [address] [place] [address] Registered Nurse Mine Engineering Manager 11/19/17 Jarrod Ramirez MD [address] [facility] [address] [place] [address] Referring Physician Transplant Hepatology 01/01/18 Leena Alfaro RN Mine Engineering Manager Transplant 05/07/19 José Manuel Antoine MD [address] [facility] [address] [place] [address] Medical Oncologist/Hematologis t Medical Oncology 11/06/21 Isreal Morgan MD [address] [facility] [address] [place] [address] Consulting Physician Otolaryngology 11/06/21 Temo Shepard MD [address] [facility] [address] [place] [address] Radiation Oncologist Radiation Oncology 11/06/21
== END 2024-09-13 20:40 | disposition left against medical advice (07) ==
LOC: ANHED 21:01
PROVIDERS: PCP Family Medicine
DX: Z53.21 Procedure and treatment not carried out due to patient leaving prior to being seen by health care provider (principal)
CPT/HCPCS: 99199